=== PATIENT | female | born 1970 | race Caucasian/White ===

== ENCOUNTER 2021-11-07 17:15 | Inpatient (IN) | payer OTHER ==
[2021-11-07] MEDS ORDERED: NALOXONE 0.4 MG/ML 1 ML VIAL IV PRN (19:00)
--- NOTE | 2021-11-07 19:05 | ED ---
General Adult HPI - General Chief complaint: Abdominal Pain Stated complaint: Abd Pain/Hernia Time Seen by Provider: 11/07/21 17:17 Source: patient, EMS, RN notes reviewed, old records reviewed Mode of arrival: EMS Limitations: no limitations - History of Present Illness Initial comments: Patient is a 51-year-old female with past medical history remarkable for chronic ventral hernia, COPD on oxygen at home who presents emergency Department complaining of a multi day history of worsening nonspecific generalized abdominal pain. Patient states that her ventral hernia normally is somewhat pretreated. No change in that site. Is not complaining of any particular pain at that site either. States her abdominal pain is crampy and located all over her abdomen. Denies fevers, chills, cough. Denies change in bowel movements, she had one yesterday and it was normal. Does endorse nausea as well as intermittent episodes of vomiting. Denies any fevers. Denies chest pain or shortness of breath. Denies cough. Has no other acute complaints at this time. No urinary complaints. Patient was sent here from the outside facility as they do not have a surgeon. They did CT imaging her as well as have problem laboratory studies all of which were relatively unremarkable. White blood cell, was minimally elevated to 11. Lactic acid was normal. CT showed no signs of hernia strangulation. - Related Data Home Medications Medication Instructions Recorded Confirmed Albuterol Nebulized [Ventolin 2.5 mg INHALATION RT-TID PRN 11/07/21 11/07/21 Nebulized] Albuterol Sulfate [Ventolin HFA] 2 puff INHALATION RT-Q6H PRN 11/07/21 11/07/21 Aspirin EC [Ecotrin Low Dose] 81 mg PO DAILY@89911/07/21 11/07/21 Atorvastatin Calcium [Lipitor] 40 mg PO DAILY@89911/07/21 11/07/21 Cetirizine HCl 10 mg PO DAILY PRN 11/07/21 11/07/21 Fenofibrate [Lofibra] 160 mg PO DAILY@89911/07/21 11/07/21 Fluticasone Propion/Salmeterol 2 puff INHALATION RT-HS 11/07/21 11/07/21 [Advair Hfa 45-21 Mcg Inhaler] Furosemide [Lasix] 20 mg PO HS@219911/07/21 11/07/21 Furosemide [Lasix] 40 mg PO DAILY@1000 11/07/21 11/07/21 Gabapentin 300 mg PO TID@0900,1300,2200 11/07/21 11/07/21 Isosorbide Mononitrate ER [Imdur] 30 mg PO DAILY@89911/07/21 11/07/21 Levothyroxine Sodium [Synthroid] 88 mcg PO DAILY@69911/07/21 11/07/21 Liraglutide [Victoza 2-Alberto] 0.6 mg SQ DAILY@89911/07/21 11/07/21 Magnesium Oxide [Magox 400] 400 mg PO DAILY@89911/07/21 11/07/21 Omeprazole 20 mg PO DAILY@89911/07/21 11/07/21 Potassium Chloride ER [K-Dur 10] 10 meq PO DAILY@89911/07/21 11/07/21 carvediloL [Coreg] 25 mg PO BID@0900,1700 11/07/21 11/07/21 lisinopriL [Zestril] 5 mg PO DAILY@89911/07/21 11/07/21 metFORMIN HCL [metFORMIN HCL ER 1,000 mg PO BID@0900,1700 11/07/21 11/07/21 Gastric] rOPINIRole HCL [Requip] 0.25 mg PO HS@209911/07/21 11/07/21 traZODone HCL [Desyrel] 50 mg PO HS@2100 11/07/21 11/07/21 Allergies Allergy/AdvReac Type Severity Reaction Status Date / Time No Known Allergies Allergy Verified 11/07/21 19:05 Review of Systems ROS Statement: Those systems with pertinent positive or pertinent negative responses have been documented in the HPI. Review of Systems: CONST: Denies fever EYES: Denies blurry vision ENT: Denies nasal congestion C/V: Denies Chest pain RESP: Denies shortness of breath GI: Endorses abdominal pain : Denies dysuria SKIN: Denies rash. MSK: Denies joint pain. NEURO: Denies headache ROS Other: All systems not noted in ROS Statement are negative. General Exam - General Exam Comments Initial Comments: General: Appears in no acute distress. HEAD: Normal with no signs of head trauma. EYES: PERRLA, EOMI, conjunctiva normal, no discharge. ENT: Hearing grossly intact, normal oropharynx. RESPIRATORY: Clear breath sounds bilaterally. No wheezes, rales, or rhonchi. No respiratory distress. No hypoxia and baseline nasal cannula. C/V: Regular rate and rhythm. S1 and S2 auscultated, no edema, peripheral pulses 2+ and intact throughout ABD: Abdomen is soft, nondistended. Patient does have a ventral hernia in the right lower quadrant. This is chronic. No new skin changes. No new enlargement. No new pain there. Gen. tenderness on palpation without any focal tenderness. No guarding. No rebound tenderness. No peritoneal signs. EXT: Normal range of motion, no obvious deformity SKIN: No rashes or lesions observed on exposed skin. NEURO: Alert and oriented 4. No focal deficits. Limitations: no limitations Course Vital Signs 11/07/21 11/07/21 11/07/21 17:39 20:35 22:18 Temperature 97.4 F L 98.2 F Pulse Rate 64 68 Pulse Rate [ 73 Pulse Oximetery ] Respiratory 18 18 19 Rate Blood Pressure 123/56 113/58 Blood Pressure 120/81 [Left Arm] O2 Sat by Pulse 95 97 99 Oximetry Medical Decision Making - Medical Decision Making Based on the patient's presentation and physical exam, does appear she is experiencing intractable abdominal pain of unknown cause. Receive multiple doses of pain medications at the outside facility. Was accepted here as a singh sfer. No change in exam at this time. Will be redosed pain meds we will repeat laboratory studies as well as an EKG. Attempts to locate the disc for the CT imaging that it does appear that she only came with the paper copy of the interpretation. Interpretation states "there is a ventral hernia which contains a short segment of small bowel. No evidence for strangulation at this time. No obstructive change seen." Patient was in agreement this plan. She'll trial eating, and will be redosed pain medications at this time. I spoke with [facility] end[facility] dentist, Dr. Diaz who accepted the patient. EKG showed no signs of acute ischemia. Laboratory studies have a screening showed a slightly elevated lactic acid 2.1 is likely secondary to dehydration. We'll given him a half liter fluid bolus. Potassium is also slightly elevated to 5.7 for which the fluid to treat. No signs of EKG changes. Patient was admitted in stable condition. - Lab Data Result diagrams: 11/07/21 19:50 11/07/21 19:50 - EKG Data -: EKG Interpreted by Me EKG Comments: 12-lead Electrocardiogram Interpretation Note EKG was reviewed and interpreted by myself. 12-lead ECG performed at 1932 is interpreted by me as revealing normal sinus rhythm with first-degree AV block at a rate of 61 beats per minute. [place] is normal. [place] interval is 234 ms, QRS duration 92 ms, QTc is 406 ms.. There were no ST or T wave abnormalities to suggest myocardial ischemia or injury. Patient has 2 PVCs appreciated. R wave progression across the precordium was satisfactory. By my interpretation this EKG is non-diagnostic for acute ischemia. Disposition Clinical Impression: Intractable abdominal pain Disposition: ADMITTED IP TO THIS HOSP Condition: Stable Time of Disposition: 19:00
[2021-11-07 20:08] LABS: Albumin 4.5 g/dL (3.5-5.0); Calcium 9.6 mg/dL (8.4-10.2); Potassium 5.7 mmol/L (3.5-5.1); Total Bilirubin 0.4 mg/dL (0.2-1.3); Total Protein 7.8 g/dL (6.3-8.2)
[2021-11-07 20:21] LABS: Basophils % (A) 0 %; Eosinophils # (A) 0.2 k/uL (0-0.7); Eosinophils % (A) 2 %; HCT 41.8 % (34.0-46.0); HGB 13.1 gm/dL (11.4-16.0); Lymphocytes # (A) 1.2 k/uL (1.0-4.8); Lymphocytes % (A) 13 %; MCH 28.7 pg (25.0-35.0); MCHC 31.4 g/dL (31.0-37.0); MCV 91.3 fL (80.0-100.0); Mean Platelet Volume 9.3; Monocytes # (A) 0.5 k/uL (0-1.0); Monocytes % (A) 5 %; Neutrophils # (A) 7.1 k/uL (1.3-7.7); Neutrophils % (A) 78 %; Platelet Count 264 k/uL (150-450); RBC 4.58 m/uL (3.80-5.40); RDW 14.4 % (11.5-15.5); WBC 9.1 k/uL (3.8-10.6)
[2021-11-07] MEDS ORDERED: SODIUM CHLORIDE 0.9% 500 ML 500 ML IV STA (20:25)
[2021-11-07] MEDS: HYDROmorphone 0.5 MG/0.5 ML SYRINGE IVP PRN (20:32)
[2021-11-08] MEDS: HYDROmorphone 0.5 MG/0.5 ML SYRINGE IVP PRN ×3 (02:06→13:59)
[2021-11-08] MEDS ORDERED: IPRATROPIUM-ALBUTEROL 3 ML NEB INHALATION PRN (02:52)
--- NOTE | 2021-11-08 02:54 | P.HPIM ---
History of Present Illness H&P Date: 11/07/21 The patient is a 51-year-old female with a PMH of COPD, chronic hypoxic respiratory failure home oxygen therapy, type II DM, hypertension, hyperlipidemia, CHF, hypothyroidism who was transferred from an outside facility where she had presented with complaints of abdominal pain. The patient reports that her pain started suddenly this morning after she had breakfast at around the site of her ventral hernia. Reports the pain has been intermittent, maximal intensity 8 out of 10, aching in nature, with a no alleviating or exacerbating features. She also reports associated nausea with a single episode of nonbloody emesis. She reports that her hernia has been essentially unchanged for the past 10-20 years. She notes that it is chronically unreducible due to its sheer size, but has not caused her much trouble in the past. She underwent a computed tomography scan at the presenting facility showing short segment of small bowel in the ventral hernia with no evidence of strangulation or obstruction. At time of interview, the patient reports that her pain has improved to a 3 out of 10. EKG in the emergency room revealed sinus rhythm with first-degree AV block with PVCs at 61 bpm. Laboratory evaluation was remarkable for a lactic acid of 2.1, sodium 135, potassium 5.7, and BUN 21. Review of systems: Pertinent positives and negatives as discussed in HPI, a complete review of systems was performed and all other systems are negative. Physical examination: General: non toxic, no distress, appears older than stated age, morbidly obese Derm: no unusual rashes/lesions, warm Head: atraumatic, normocephalic, symmetric Eyes: EOMI, no lid lag, anicteric sclera, pupils equal round reactive to light ENT: Nose and ears atraumatic Neck: No cervical lymphadenopathy, trachea midline, supple Mouth: no lip lesion, mucus membranes moist Cardiovascular: S1S2 reg, no murmur, positive dorsalis pedis pulse bilateral, no edema Lungs: CTA bilateral, no rhonchi, no rales, no accessory muscle use Abdominal: Obese, large right lower quadrant ventral hernia with tenderness, no guarding Ext: muscle strength 5 out of 5 in all 4 extremities grossly, no gross muscle atrophy, no contractures, Neuro: CN II-XI grossly intact, no gross focal neuro deficits Psych: Alert, oriented, appropriate affect Assessment/plan Intractable abdominal pain with nausea and vomiting -Gentle IV hydration -Pain control -Antiemetics Hyperkalemia -May be due to dehydration with VANESA inhibitor and potassium supplementation use -Hold off on home lisinopril and potassium at this time -IV fluids Chronic conditions: Hyperlipidemia, hypertension, type II DM, hypothyroidism, CHF -Continue with home meds -Insulin sliding scale blood glucose monitoring DVT prophylaxis -Heparin subcu The patient is admitted with an anticipated less than 2 midnight stay for evaluation of abdominal pain. CODE STATUS: Full Code Discussed with: Patient Anticipated discharge date: In a.m. Anticipated discharge place: Home Past Medical History History of Any Multi-Drug Resistant Organisms: None Reported Smoking Status: Smoker, current status unknown - Past Family History Mother Family Medical History: Cancer Medications and Allergies Home Medications Medication Instructions Recorded Confirmed Type Albuterol Nebulized [Ventolin 2.5 mg INHALATION RT-TID PRN 11/07/21 11/07/21 History Nebulized] Albuterol Sulfate [Ventolin HFA] 2 puff INHALATION RT-Q6H PRN 11/07/21 11/07/21 History Aspirin EC [Ecotrin Low Dose] 81 mg PO DAILY@0911/07/21 11/07/21 History Atorvastatin Calcium [Lipitor] 40 mg PO DAILY@89911/07/21 11/07/21 History Cetirizine HCl 10 mg PO DAILY PRN 11/07/21 11/07/21 History Fenofibrate [Lofibra] 160 mg PO DAILY@0911/07/21 11/07/21 History Fluticasone Propion/Salmeterol 2 puff INHALATION RT-HS 11/07/21 11/07/21 History [Advair Hfa 45-21 Mcg Inhaler] Furosemide [Lasix] 20 mg PO HS@2200 11/07/21 11/07/21 History Furosemide [Lasix] 40 mg PO DAILY@1000 11/07/21 11/07/21 History Gabapentin 300 mg PO TID@0900,1300,2200 11/07/21 11/07/21 History Isosorbide Mononitrate ER [Imdur] 30 mg PO DAILY@0900 11/07/21 11/07/21 History Levothyroxine Sodium [Synthroid] 88 mcg PO DAILY@69911/07/21 11/07/21 History Liraglutide [Victoza 2-Alberto] 0.6 mg SQ DAILY@89911/07/21 11/07/21 History Magnesium Oxide [Magox 400] 400 mg PO DAILY@89911/07/21 11/07/21 History Omeprazole 20 mg PO DAILY@89911/07/21 11/07/21 History Potassium Chloride ER [K-Dur 10] 10 meq PO DAILY@89911/07/21 11/07/21 History carvediloL [Coreg] 25 mg PO BID@0900,1700 11/07/21 11/07/21 History lisinopriL [Zestril] 5 mg PO DAILY@89911/07/21 11/07/21 History metFORMIN HCL [metFORMIN HCL ER 1,000 mg PO BID@0900,169911/07/21 11/07/21 History Gastric] rOPINIRole HCL [Requip] 0.25 mg PO HS@209911/07/21 11/07/21 History traZODone HCL [Desyrel] 50 mg PO HS@209911/07/21 11/07/21 History Allergies Allergy/AdvReac Type Severity Reaction Status Date / Time No Known Allergies Allergy Verified 11/07/21 19:05 Physical Exam Vitals: Vital Signs Temp Pulse Pulse Resp BP BP Pulse Ox 11/07/21 22:18 98.2 F 73 19 120/81 99 11/07/21 20:35 68 18 113/58 97 11/07/21 17:39 97.4 F L 64 18 123/56 95 Intake and Output 11/07/21 11/07/21 11/07/21 06:59 14:59 22:59 Other: Voiding Method Toilet Weight 141.067 kg Results CBC & Chem 7: 11/07/21 19:50 11/07/21 19:50 Labs: Abnormal Lab Results - Last 24 Hours (Table) 11/07/21 11/07/21 Range/Units 19:50 19:50 Sodium 135 L (137-145) mmol/L Potassium 5.7 H (3.5-5.1) mmol/L BUN 21 H (7-17) mg/dL Glucose 162 H (74-99) mg/dL Plasma Lactic Acid Theodore 2.1 H* (0.7-2.0) mmol/L Thrombosis Risk Factor Assmnt - Choose All That Apply Each Factor Represents 1 point: Abnormal pulmonary function (COPD), Age 41-60 years, Obesity (BMI >25) Thrombosis Risk Factor Assessment Total Risk Factor Score: 3 Thrombosis Risk Factor Assessment Level: Moderate Risk
[2021-11-08] MEDS: LEVOTHYROXINE 88 MCG TAB PO SCH (05:24)
[2021-11-08 06:59] LABS: Glucose,Whole Blood 132 mg/dL (70-110)
[2021-11-08] MEDS: ASPIRIN 81 MG PO SCH (07:55)
[2021-11-08] MEDS: carvediloL 12.5 MG TAB PO SCH ×2 (07:55→19:46)
[2021-11-08] MEDS: HEPARIN SODIUM,PORCINE/PF 5,000 UNIT/0.5 ML SYRINGE SQ SCH ×3 (07:55→21:25)
[2021-11-08] MEDS: INSULIN ASPART (NovoLOG) 100 UNIT/ML VIAL SQ SCH ×4 (07:55→21:27)
[2021-11-08] MEDS: MAGNESIUM OXIDE 400 MG TAB PO SCH (07:55)
[2021-11-08] MEDS: GABAPENTIN 300 MG CAP PO SCH ×3 (07:55→21:26)
[2021-11-08] MEDS: ISOSORBIDE MONONITRATE ER 30 MG TAB.ER.24H PO SCH (07:55)
[2021-11-08] MEDS: ATORVASTATIN 40 MG TAB PO SCH (07:55)
[2021-11-08 08:51] LABS: Basophils # (A) 0.02 X 10*3/uL (0.00-0.10); Basophils % (A) 0.2 %; Eosinophils % (A) 0.8 %; HCT 43.7 % (37.2-46.3); HGB 12.9 g/dL (12.0-15.0); Immature Grans, Automated 0.3 %; Lymphocytes # (A) 1.68 X 10*3/uL (0.90-5.00); Lymphocytes % (A) 13.7 %; MCH 27.5 pg (27.0-32.0); MCHC 29.5 g/dL (32.0-37.0); MCV 93.2 fL (80.0-97.0); Monocytes # (A) 1.11 X 10*3/uL (0.20-1.00); NRBC Per 100 WBC 0 /100 WBCS (0.0-0.0); Neutrophils # (A) 9.35 X 10*3/uL (1.80-7.70); Platelet Count 273 X 10*3/uL (140-440); RBC 4.69 X 10*6/uL (4.10-5.20); RDW 14.8 % (11.5-14.5)
[2021-11-08] MEDS ORDERED: lisinopriL 5 MG TAB PO SCH (09:00)
[2021-11-08] MEDS ORDERED: POTASSIUM CHLORIDE ER 10 MEQ TAB.ER.PRT PO SCH (09:00)
[2021-11-08 09:59] LABS: Appearance,Urine Clear (Clear); Bacteria,Urine Rare /hpf; Bilirubin,Urine Negative (Negative); Blood,Urine Negative (Negative); Color,Urine Yellow; Glucose,Urine (UA) Negative (Negative); Ketones,Urine Negative (Negative); Leukocyte Esterase,Urine Moderate (Negative); Mucus,Urine Rare /hpf; Nitrite,Urine Negative (Negative); PH, Urine 5.5 (5.0-8.0); Protein,Urine Negative (Negative); RBC,Urine 1 /hpf (0-5); Specific Gravity,Urine 1.015 (1.001-1.035); Squamous Epithelial Cell,Urine 2 /hpf (0-4); Urobilinogen,Urine <2.0 mg/dL (<2.0); WBC,Urine 9 /hpf (0-5)
[2021-11-08 11:19] LABS: Albumin/Globulin Ratio 1.33 (1.60-3.17); Anion Gap 11.4 mmol/L (10.00-18.00); Calcium 9.5 mg/dL (8.7-10.3); Carbon Dioxide 26.6 mmol/L (20.0-27.5); Non-African American GFR(CKD) 64.7 (60.0-200.0); Potassium 5.2 mmol/L (3.5-5.5); Total Bilirubin 0.3 mg/dL (0.30-1.20)
[2021-11-08 12:13] LABS: Glucose,Whole Blood 196 mg/dL (70-110)
[2021-11-08] MEDS: IOPAMIDOL CONTRAST (ORAL USE) VIAL PO PRN ×2 (14:26→15:32)
--- NOTE | 2021-11-08 14:40 | P.GSCN ---
History of Present Illness Consult date: 11/08/21 History of present illness: REASON FOR CONSULTATION: Abdominal pain HISTORY OF PRESENT ILLNESS: The patient is a 51 year old female transferred from an outside institution due to abdominal pain that started yesterday. Patient presents with a complicated surgical history of incisional hernia ongoing for over 20+ years. Patient reports hernia developing after cholecystectomy. She reports that surgeons at her home town will not do her surgery. She was referred to [facility] and chose not to go. Patient chronically smokes. She reports her first episode of right lower quadrant abdominal pain yesterday. CT imaging not immediately available from prior institution. Per medical records, she has bowel containing hernia identified. Patient had 1 epi sode of emesis yesterday. She denies flatus. No bowel movement. EKG performed at this institution demonstrates multiple abnormalities. She reports no flatus. PAST MEDICAL HISTORY: See list and reviewed PAST SURGICAL HISTORY: See list and reviewed MEDICATIONS: See list and reviewed ALLERGIES: See list and reviewed SOCIAL HISTORY: See list and reviewed FAMILY HISTORY: See list and reviewed REVIEW OF ORGAN SYSTEMS: CONSTITUTIONAL: No fevers or chills. BMI 48.7 EYES: Denies any trouble with vision. No glasses. HEENT: No difficulties with hearing. No nosebleeds. No difficulty swallowing. RESPIRATORY: Tobacco user. Has chronic obstructive pulmonary disease. CARDIOVASCULAR: Has hyperlipidemia. Has hypertensive heart disease. Has congestive heart failure. GASTROINTESTINAL: Denies fatty food intolerance. Has gastroesophaegal reflux disease. GENITOURINARY: Denies any blood in urine or increased urinary frequency. NEUROLOGICAL: Denies any numbness or tingling along the distal extremities. No seizure disorders or headaches. MUSCULOSKELETAL: Denies any back pain, stiffness or joint arthritis. SKIN: No current skin cancer. No rash. PSYCHIATRIC: Denies current depression or suicidal thoughts. ENDOCRINE: Has hypothyroidism. Has diabetes type II, non-insulin dependent. HEME/LYMPHATIC: Denies any lumps and bumps around the neck. No recent deep venous thrombosis. ALLERGY/IMMUNOLOGY: No immunoglobulin therapy. No immune deficiencies. BREAST: Denies current breast lumps, pain or nipple discharge. PHYSICAL EXAM: VITALS: Reviewed CONSTITUTIONAL: Well developed and in no acute distress. EYES: Conjuctivae without sclera icterus. Extraocular movements grossly intact. HEAD, EARS, NOSE, THROAT: Moist buccal mucosa. Head is atraumatic, normocephalic. Hears conversational speech. No nasal drainage. NECK: Supple. No JV distention. No thyroidomegaly. RESPIRATORY: Non-labored respirations and equal bilateral excursions. No gross wheezes. CARDIOVASCULAR: Palpable 2+ radial pulses. ABDOMEN: Abdomen large pannus without skin changes. Abdomen tender without diffuse peritonitis. Swelling at the right lower quadrant. Umbilical hernia identified. LYMPH: No neck lymphadenopathy. MUSCULOSKELETAL: Nail and fingers with good capillary refill. SKIN: Warm and well perfused with good skin turgor. NEUROLOGIC: Cranial nerves II through XII grossly intact. No focal or lateralizing signs. PSYCH: Appropriate affect. Alert and oriented to person, place and time. Displays appropriate insight. CLINCAL LABS: Reviewed. WBC up from 9.1 to 12.3. Hgb 12.9 EKG: Septal myocardial infarction and 1st degree AV block. ASSESSMENT: 1. Abdominal pain 2. Morbid obesity, BMI 48.7 3. COPD 4. Incarcerated incisional hernia. 5. Congestive heart failure with hypertensive heart disease. 6. Diabetes type II 7. Hypothyroidism. PLAN: 1. Recommend computed tomography scan for investigation strangle incisional hernia. 2. Cardiology risk assessment for abnormal EKG. 3. Tobacco cessation reviewed with patient 4. Recommend chest x-ray and she will need general anesthetic 5. Patient with moderately elevated risk due to chronic tobacco abuse, morbid obesity, multiple cardiac abnormalities per EKG 6. Nothing by mouth and discontinue heart healthy diet 7. CT of the abdomen pelvis for abdominal pain and change in medical condition for strangulated hernia. Thank you for this kind consultation. Past Medical History History of Any Multi-Drug Resistant Organisms: None Reported Smoking Status: Smoker, current status unknown - Past Family History Mother Family Medical History: Cancer Medications and Allergies Home Medications Medication Instructions Recorded Confirmed Type Albuterol Nebulized [Ventolin 2.5 mg INHALATION RT-TID PRN 11/07/21 11/07/21 History Nebulized] Albuterol Sulfate [Ventolin HFA] 2 puff INHALATION RT-Q6H PRN 11/07/21 11/07/21 History Aspirin EC [Ecotrin Low Dose] 81 mg PO DAILY@89911/07/21 11/07/21 History Atorvastatin Calcium [Lipitor] 40 mg PO DAILY@89911/07/21 11/07/21 History Cetirizine HCl 10 mg PO DAILY PRN 11/07/21 11/07/21 History Fenofibrate [Lofibra] 160 mg PO DAILY@0911/07/21 11/07/21 History Fluticasone Propion/Salmeterol 2 puff INHALATION RT-HS 11/07/21 11/07/21 History [Advair Hfa 45-21 Mcg Inhaler] Furosemide [Lasix] 20 mg PO HS@219911/07/21 11/07/21 History Furosemide [Lasix] 40 mg PO DAILY@1000 11/07/21 11/07/21 History Gabapentin 300 mg PO TID@0900,1300,2200 11/07/21 11/07/21 History Isosorbide Mononitrate ER [Imdur] 30 mg PO DAILY@0911/07/21 11/07/21 History Levothyroxine Sodium [Synthroid] 88 mcg PO DAILY@0711/07/21 11/07/21 History Liraglutide [Victoza 2-Alberto] 0.6 mg SQ DAILY@89911/07/21 11/07/21 History Magnesium Oxide [Magox 400] 400 mg PO DAILY@0911/07/21 11/07/21 History Omeprazole 20 mg PO DAILY@0911/07/21 11/07/21 History Potassium Chloride ER [K-Dur 10] 10 meq PO DAILY@0911/07/21 11/07/21 History carvediloL [Coreg] 25 mg PO BID@0900,1700 11/07/21 11/07/21 History lisinopriL [Zestril] 5 mg PO DAILY@0911/07/21 11/07/21 History metFORMIN HCL [metFORMIN HCL ER 1,000 mg PO BID@0900,1700 11/07/21 11/07/21 History Gastric] rOPINIRole HCL [Requip] 0.25 mg PO HS@2100 11/07/21 11/07/21 History traZODone HCL [Desyrel] 50 mg PO HS@2100 11/07/21 11/07/21 History Allergies Allergy/AdvReac Type Severity Reaction Status Date / Time No Known Allergies Allergy Verified 11/07/21 19:05 Surgical - Exam Vital Signs Temp Pulse Resp BP Pulse Ox 97.4 F L 64 18 123/56 95 11/07/21 17:39 11/07/21 17:39 11/07/21 17:39 11/07/21 17:39 11/07/21 17:39 Results - Labs 11/08/21 04:21 11/08/21 04:21 Abnormal Lab Results - Last 24 Hours (Table) 11/07/21 11/07/21 11/08/21 Range/Units 19:50 19:50 04:21 WBC 12.30 H (4.50-10.00) X 10*3/uL MCHC 29.5 L (32.0-37.0) g/dL RDW 14.8 H (11.5-14.5) % Neutrophils # 9.35 H (1.80-7.70) X 10*3/uL Monocytes # 1.11 H (0.20-1.00) X 10*3/uL Sodium 135 L (137-145) mmol/L Potassium 5.7 H (3.5-5.1) mmol/L BUN 21 H (7-17) mg/dL Glucose 162 H (74-99) mg/dL POC Glucose (mg/dL) (70-110) mg/dL Plasma Lactic Acid Theodore 2.1 H* (0.7-2.0) mmol/L Albumin/Globulin Ratio (1.60-3.17) g/dL Ur Leukocyte Esterase (Negative) Urine WBC (0-5) /hpf Urine Bacteria (None) /hpf Urine Mucus (None) /hpf 11/08/21 11/08/21 11/08/21 Range/Units 04:21 06:57 09:30 WBC (4.50-10.00) X 10*3/uL MCHC (32.0-37.0) g/dL RDW (11.5-14.5) % Neutrophils # (1.80-7.70) X 10*3/uL Monocytes # (0.20-1.00) X 10*3/uL Sodium (137-145) mmol/L Potassium (3.5-5.1) mmol/L BUN (7-17) mg/dL Glucose 143 H (74-99) mg/dL POC Glucose (mg/dL) 132 H (70-110) mg/dL Plasma Lactic Acid Theodore (0.7-2.0) mmol/L Albumin/Globulin Ratio 1.33 L (1.60-3.17) g/dL Ur Leukocyte Esterase Moderate H (Negative) Urine WBC 9 H (0-5) /hpf Urine Bacteria Rare H (None) /hpf Urine Mucus Rare H (None) /hpf 11/08/21 Range/Units 12:10 WBC (4.50-10.00) X 10*3/uL MCHC (32.0-37.0) g/dL RDW (11.5-14.5) % Neutrophils # (1.80-7.70) X 10*3/uL Monocytes # (0.20-1.00) X 10*3/uL Sodium (137-145) mmol/L Potassium (3.5-5.1) mmol/L BUN (7-17) mg/dL Glucose (74-99) mg/dL POC Glucose (mg/dL) 196 H (70-110) mg/dL Plasma Lactic Acid Theodore (0.7-2.0) mmol/L Albumin/Globulin Ratio (1.60-3.17) g/dL Ur Leukocyte Esterase (Negative) Urine WBC (0-5) /hpf Urine Bacteria (None) /hpf Urine Mucus (None) /hpf Diabetes panel 11/07/21 11/08/21 Range/Units 19:50 04:21 Sodium 135 L 136 (137-145) mmol/L Potassium 5.7 H 5.2 (3.5-5.1) mmol/L Chloride 100 98 (98-107) mmol/L Carbon Dioxide 26 26.6 (22-30) mmol/L BUN 21 H 19.0 (7-17) mg/dL Creatinine 0.93 1.0 (0.52-1.04) mg/dL Glucose 162 H 143 H (74-99) mg/dL Calcium 9.6 9.5 (8.4-10.2) mg/dL AST 28 21 (14-36) U/L ALT 24 20 (4-34) U/L Alkaline Phosphatase 74 65 (38-126) U/L Total Protein 7.8 7.0 (6.3-8.2) g/dL Albumin 4.5 4.0 (3.5-5.0) g/dL Calcium panel 11/07/21 11/08/21 Range/Units 19:50 04:21 Calcium 9.6 9.5 (8.4-10.2) mg/dL Albumin 4.5 4.0 (3.5-5.0) g/dL Pituitary panel 11/07/21 11/08/21 Range/Units 19:50 04:21 Sodium 135 L 136 (137-145) mmol/L Potassium 5.7 H 5.2 (3.5-5.1) mmol/L Chloride 100 98 (98-107) mmol/L Carbon Dioxide 26 26.6 (22-30) mmol/L BUN 21 H 19.0 (7-17) mg/dL Creatinine 0.93 1.0 (0.52-1.04) mg/dL Glucose 162 H 143 H (74-99) mg/dL Calcium 9.6 9.5 (8.4-10.2) mg/dL Adrenal panel 11/07/21 11/08/21 Range/Units 19:50 04:21 Sodium 135 L 136 (137-145) mmol/L Potassium 5.7 H 5.2 (3.5-5.1) mmol/L Chloride 100 98 (98-107) mmol/L Carbon Dioxide 26 26.6 (22-30) mmol/L BUN 21 H 19.0 (7-17) mg/dL Creatinine 0.93 1.0 (0.52-1.04) mg/dL Glucose 162 H 143 H (74-99) mg/dL Calcium 9.6 9.5 (8.4-10.2) mg/dL Total Bilirubin 0.4 0.30 (0.2-1.3) mg/dL AST 28 21 (14-36) U/L ALT 24 20 (4-34) U/L Alkaline Phosphatase 74 65 (38-126) U/L Total Protein 7.8 7.0 (6.3-8.2) g/dL Albumin 4.5 4.0 (3.5-5.0) g/dL
[2021-11-08] MEDS: SODIUM CHLORIDE 0.9% 1,000 ML IV SCH ×2 (15:33→21:28)
[2021-11-08 16:32] LABS: Glucose,Whole Blood 168 mg/dL (70-110)
--- NOTE | 2021-11-08 16:37 | XR ---
EXAMINATION TYPE: XR chest 2V DATE OF EXAM: 11/08/2021 COMPARISON: NONE HISTORY: Abdominal pain TECHNIQUE: 2 views FINDINGS: There is no heart failure nor confluent pneumonic infiltrate. Costophrenic angles are clear . Heart size is fairly normal. Bony thorax is intact. IMPRESSION: No active cardiopulmonary disease.
--- NOTE | 2021-11-08 16:55 | CT ---
EXAMINATION TYPE: CT abdomen pelvis wo con DATE OF EXAM: 11/08/2021 COMPARISON: None HISTORY: abd hernia CT DLP: 2660.2 mGycm Automated exposure control for dose reduction was used. Images obtained from the diaphragm to the floor the pelvis with oral contrast. Lung bases are clear of consolidation. There is minimal subsegmental atelectasis left lung base. No p leural effusion. No pericardial effusion. Heart size is fairly normal. Liver spleen stomach pancreas appear intact. There are clips from cholecystectomy. There is no adrenal mass. Liver is enlarged and measures 22.5 cm. Kidneys are of normal size and cont our. No hydronephrosis. Ureters are not dilated. No retroperitoneal adenopathy. There is large right anterior abdominal wall ventral hernia containing some small bowel. Small bowel measures up to 3.2 c m. The bladder distends smoothly. No inguinal hernia. No free fluid in the pelvis. No pelvic mass. Ut erus appears normal. The lumbar vertebrae have normal alignment. Disc spaces are fairly normal. No compression fracture. P osterior elements are intact. The hip joints are intact. Bony pelvis is intact. IMPRESSION: The oral contrast material only reaches the proximal small bowel. There is some mildly dilated small bowel in the mid abdomen including the incarcerated large ventral hernia that could be a partial mech anical small bowel obstruction.
--- NOTE | 2021-11-08 16:56 | P.PN ---
Subjective Progress Note Date: 11/08/21 The patient is a 51-year-old female with obesity, COPD, chronic hypoxic respiratory failure on home oxygen, diabetes type 2 transferred for abdominal pain. The patient described right sided pain around the location of her ventral hernia. Patient had a computed tomography scan of present facility with short segment of small bowel and ventral hernia with no evidence of strangulation. She wasn't monitored here overnight she says she still has pain is rated 8 out of 10 Objective - Vital Signs Vital signs: Vital Signs Temp 97.9 F 11/08/21 13:42 Pulse 70 11/08/21 13:42 Resp 14 11/08/21 13:42 BP 124/71 11/08/21 13:42 Pulse Ox 94 L 11/08/21 13:42 FiO2 Intake & Output 11/07/21 11/08/21 11/08/21 18:59 06:59 18:59 Intake Total 118 Balance 118 Weight 141.067 kg 141.067 kg Intake: Oral 118 Other: Voiding Method Toilet Toilet # Voids 0 3 - Constitutional General appearance: Present: morbidly obese - Respiratory Respiratory: bilateral: CTA - Cardiovascular Rhythm: regular - Gastrointestinal Localized gastrointestinal: tender: RLQ - Musculoskeletal Musculoskeletal Comment(s): Chronic stasis changes in the legs bilaterally - Psychiatric Psychiatric: Present: A&O x's 3, appropriate affect - Labs CBC & Chem 7: 11/08/21 04:21 11/08/21 04:21 Labs: Abnormal Lab Results - Last 24 Hours (Table) 11/07/21 11/07/21 11/08/21 Range/Units 19:50 19:50 04:21 WBC 12.30 H (4.50-10.00) X 10*3/uL MCHC 29.5 L (32.0-37.0) g/dL RDW 14.8 H (11.5-14.5) % Neutrophils # 9.35 H (1.80-7.70) X 10*3/uL Monocytes # 1.11 H (0.20-1.00) X 10*3/uL Sodium 135 L (137-145) mmol/L Potassium 5.7 H (3.5-5.1) mmol/L BUN 21 H (7-17) mg/dL Glucose 162 H (74-99) mg/dL POC Glucose (mg/dL) (70-110) mg/dL Plasma Lactic Acid Theodore 2.1 H* (0.7-2.0) mmol/L Albumin/Globulin Ratio (1.60-3.17) g/dL Ur Leukocyte Esterase (Negative) Urine WBC (0-5) /hpf Urine Bacteria (None) /hpf Urine Mucus (None) /hpf 11/08/21 11/08/21 11/08/21 Range/Units 04:21 06:57 09:30 WBC (4.50-10.00) X 10*3/uL MCHC (32.0-37.0) g/dL RDW (11.5-14.5) % Neutrophils # (1.80-7.70) X 10*3/uL Monocytes # (0.20-1.00) X 10*3/uL Sodium (137-145) mmol/L Potassium (3.5-5.1) mmol/L BUN (7-17) mg/dL Glucose 143 H (74-99) mg/dL POC Glucose (mg/dL) 132 H (70-110) mg/dL Plasma Lactic Acid Theodore (0.7-2.0) mmol/L Albumin/Globulin Ratio 1.33 L (1.60-3.17) g/dL Ur Leukocyte Esterase Moderate H (Negative) Urine WBC 9 H (0-5) /hpf Urine Bacteria Rare H (None) /hpf Urine Mucus Rare H (None) /hpf 11/08/21 11/08/21 Range/Units 12:10 16:31 WBC (4.50-10.00) X 10*3/uL MCHC (32.0-37.0) g/dL RDW (11.5-14.5) % Neutrophils # (1.80-7.70) X 10*3/uL Monocytes # (0.20-1.00) X 10*3/uL Sodium (137-145) mmol/L Potassium (3.5-5.1) mmol/L BUN (7-17) mg/dL Glucose (74-99) mg/dL POC Glucose (mg/dL) 196 H 168 H (70-110) mg/dL Plasma Lactic Acid Theodore (0.7-2.0) mmol/L Albumin/Globulin Ratio (1.60-3.17) g/dL Ur Leukocyte Esterase (Negative) Urine WBC (0-5) /hpf Urine Bacteria (None) /hpf Urine Mucus (None) /hpf Assessment and Plan (1) Intractable abdominal pain Narrative/Plan: I appreciate general surgery consult, patient is not nothing by mouth, repeat CT of the abdomen was done is also still pending, pain control will continue on her weight workup to determine next steps for pain control with IV Dilaudid Current Visit: Yes Status: Acute Code(s): R10.9 - UNSPECIFIED ABDOMINAL PAIN SNOMED Code(s): 79596460 (2) Diabetes mellitus Narrative/Plan: Continue insulin sliding scale Current Visit: Yes Status: Acute Code(s): E11.9 - TYPE 2 DIABETES MELLITUS WITHOUT COMPLICATIONS SNOMED Code(s): 68376118 (3) COPD (chronic obstructive pulmonary disease) Narrative/Plan: Patient on home oxygen continue current Current Visit: Yes Status: Acute Code(s): J44.9 - CHRONIC OBSTRUCTIVE PULMONARY DISEASE, UNSPECIFIED SNOMED Code(s): 30367573
[2021-11-08] MEDS: HYDROmorphone 1 MG/ML 1 ML SYRINGE IVP PRN ×2 (17:20→19:45)
[2021-11-08] MEDS: traZODone HCL 50 MG TAB PO SCH (19:46)
[2021-11-08 20:09] LABS: Glucose,Whole Blood 146 mg/dL (70-110)
[2021-11-08] MEDS: SYMBICORT 80-4.5 MCG INHALER INHALATION SCH (20:29)
[2021-11-08] MEDS ORDERED: ONDANSETRON 4 MG/2 ML VIAL IVP STA (21:13)
--- NOTE | 2021-11-08 21:19 | P.PN ---
Progress Note - Text Progress Note Date: 11/08/[address] scan results with Surgeon stone unloader Dr Santizo. She noted that she had reviewed the results of the study and had compared them to the prior computed tomography scan from the outside facility. She noted to continue the patient with nothing by mouth and pain control at this time with no immediate surgical intervention needed.
[2021-11-09] MEDS: HYDROmorphone 1 MG/ML 1 ML SYRINGE IVP PRN ×6 (02:27→20:25)
[2021-11-09] MEDS: LEVOTHYROXINE 88 MCG TAB PO SCH (05:50)
[2021-11-09] MEDS: SODIUM CHLORIDE 0.9% 1,000 ML IV SCH ×2 (05:51→15:36)
[2021-11-09 07:27] LABS: Glucose,Whole Blood 127 mg/dL (70-110)
[2021-11-09] MEDS: INSULIN ASPART (NovoLOG) 100 UNIT/ML VIAL SQ SCH ×4 (07:36→21:24)
[2021-11-09] MEDS: HEPARIN SODIUM,PORCINE/PF 5,000 UNIT/0.5 ML SYRINGE SQ SCH ×2 (07:36→15:49)
[2021-11-09] MEDS: GABAPENTIN 300 MG CAP PO SCH ×3 (07:36→20:27)
[2021-11-09] MEDS: ASPIRIN 81 MG PO SCH (07:36)
[2021-11-09] MEDS: ISOSORBIDE MONONITRATE ER 30 MG TAB.ER.24H PO SCH (07:36)
[2021-11-09] MEDS: MAGNESIUM OXIDE 400 MG TAB PO SCH (07:36)
[2021-11-09] MEDS: ATORVASTATIN 40 MG TAB PO SCH (07:36)
[2021-11-09] MEDS: carvediloL 12.5 MG TAB PO SCH ×2 (07:36→20:29)
[2021-11-09 10:28] LABS: Basophils % (A) 0 %; Eosinophils # (A) 0.1 k/uL (0-0.7); Eosinophils % (A) 1 %; HCT 40.8 % (34.0-46.0); Lymphocytes # (A) 1.5 k/uL (1.0-4.8); Lymphocytes % (A) 16 %; MCH 29.6 pg (25.0-35.0); MCHC 31.9 g/dL (31.0-37.0); MCV 92.9 fL (80.0-100.0); Mean Platelet Volume 9.4; Monocytes # (A) 0.7 k/uL (0-1.0); Monocytes % (A) 8 %; Neutrophils # (A) 6.8 k/uL (1.3-7.7); Neutrophils % (A) 73 %; Platelet Count 233 k/uL (150-450); RBC 4.39 m/uL (3.80-5.40); RDW 14.5 % (11.5-15.5); WBC 9.4 k/uL (3.8-10.6)
[2021-11-09 10:36] LABS: Prothrombin Time 10.8 sec (9.0-12.0)
[2021-11-09 10:37] LABS: ALT 28 U/L (4-34); AST 46 U/L (14-36); African American GFR (CKD) >90 (>60 ml/min/1.73 sqM); Albumin 3.8 g/dL (3.5-5.0); Albumin/Globulin Ratio 1.3; Alkaline Phosphatase 80 U/L (38-126); Anion Gap 9 mmol/L; Blood Urea Nitrogen 15 mg/dL (7-17); Calcium 8.6 mg/dL (8.4-10.2); Carbon Dioxide 26 mmol/L (22-30); Chloride 99 mmol/L (98-107); Globulin 2.9 g/dL; Glucose 127 mg/dL (74-99); Non-African American GFR(CKD) 88 (>60 ml/min/1.73 sqM); Potassium 4.5 mmol/L (3.5-5.1); Sodium 134 mmol/L (137-145); Total Protein 6.7 g/dL (6.3-8.2)
[2021-11-09 11:29] LABS: HCT 40.4 % (37.2-46.3); HGB 12.3 g/dL (12.0-15.0); MCHC 30.4 g/dL (32.0-37.0); Mean Platelet Volume 12.3 fL (9.5-12.2); NRBC Per 100 WBC 0 /100 WBCS (0.0-0.0); Platelet Count 240 X 10*3/uL (140-440); RBC 4.39 X 10*6/uL (4.10-5.20); RDW 14.8 % (11.5-14.5); WBC 10.25 X 10*3/uL (4.50-10.00)
--- NOTE | 2021-11-09 11:32 | CA ---
Transthoracic Echo Report Name: Viki Gamble Age: 51 Gender: F : 1970 Exam Date: 11/08/2021 15:21 Exam Location: [facility] Ht (in): 60 Wt (lb): 311 Ordering Physician: Aquilino Matthew MD Attending/Referring Phys: Academic Records Specialist Luz Marina Moralez RDCS Procedure CPT: Indications: cardio clearance Cardiac Hx: Technical Quality: Very technically difficult study Contrast 1: Lumason Total Dose (mL): 3 Contrast 2: Total Dose (mL): MEASUREMENTS (Male / Female) Normal Values 2D ECHO RV Internal Dim ED PLAX 4.2 cm FINDINGS Left Ventricle Left ventricular ejection fraction is estimated at _50-55%. Right Ventricle Severe right ventricular dilatation. Right Atrium Normal right atrial size. Left Atrium Normal left atrial size. Mitral Valve Mitral valve not well visualized. Aortic Valve Aortic valve not well visualized. Tricuspid Valve Tricuspid valve not well visualized. Pulmonic Valve Pulmonic valve not well visualized. Pericardium Aorta CONCLUSIONS Technically difficult study with suboptimal acoustic windows on account of body habitus Likely normal LV systolic function Enlarged right ventricle Previewed by: Dr. Aquilino Matthew MD (Electronically Signed) Final Date: 09 November 2021 11:31
[2021-11-09 11:53] LABS: Glucose,Whole Blood 145 mg/dL (70-110)
--- NOTE | 2021-11-09 12:06 | P.CRDCN ---
History of Present Illness Consult date: 11/09/21 Reason for Consult (text): Cardiac clearance for surgery Chief complaint: Abdominal pain History of present illness: This is Sean Rosario NP, I'm dictating on behalf of Dr. Matthew's H&P and A&P The patient was interviewed and examined. HPI: Patient is a pleasant 51-year-old female who initially presented to the hospital with complaints of intractable abdominal pain. Patient states that she's had a large ventral hernia for years, but the last night she started having severe pain, that would not resolve. She presented to the hospital for evaluation. She was subsequently admitted for possible ventral hernia repair, but general surgery requested cardiac clearance secondary to the patient's history. Patient does have a history of congestive heart failure, however she states she has never been hospitalized for any significant exacerbations. She reports that it's well-controlled on medications. Patient also has a history of hypertension, that she states is well controlled on medications. She takes a statin for hyperlipidemia. She does state that 4 years ago she had a heart cath which did show a 70% blockage to one of her coronary arteries, however medication management was the preferred option at that time. Today she does not have any complaints of chest pain, shortness of breath, heart palpitations, dizziness, or swelling or edema. ROS: [No fever, chills, or rigors] [no cough, phlegm, or expectoration] [no nausea, vomiting, or diarrhea] [no hematuria, dysuria] [no musculoskelatal complaints] [no strokes or seizures] [no skin lesions] EXAMINATION: GENERAL: Well-appearing, well-nourished and in no acute distress. NECK: Supple without JVD or thyromegaly. LUNGS: Breath sounds clear to auscultation bilaterally. Respiration equal and unlabored. No wheezes, rales or rhonchi. HEART: Regular rate and rhythm without murmurs, rubs or gallops. S1 and S2 heard. EXTREMITIES: Normal range of motion, no edema. No clubbing or cyanosis. Peripheral pulses intact and strong. REVIEW OF LABS, ECG & MEDICAL DATA: LABS: White count 9.4, hemoglobin 13, platelets 233, sodium 134, potassium 4.5, BUN 15, creatinine 0.78, EKG: Normal sinus rhythm IMAGING: Echocardiogram dated 11/08/2021 demonstrates left ventricle ejection fraction estimated at 50-55%, severe right ventricular dilatation, normal right atrial size, normal left atrial size, mitral valve, aortic valve, tricuspid valve, pulmonic valve not well visualized due to body habitus. Conclusion shows a technically difficult study with suboptimal acoustic windows, body habitus, likely normal LV systolic function, enlarged right ventricle; chest x-ray dated 11/08/2021 demonstrates no active cardiopulmonary disease; CT of the abdomen and pelvis dated 11/08/2021 demonstrates that the oral contrast material only reaches the proximal small bowel, there is some mildly dilated small bowel in the mid abdomen including the incarcerated large ventral hernia that could be a partial mechanical small bowel obstruction VITALS: Temp 99.1, pulse 77, respirations 18, blood pressure 144/76, O2 saturation 97% on 2 L by nasal cannula IMPRESSION: 1. Incarcerated ventral hernia 2. History CHF 3. History hypertension 4. Mild hyponatremia PLAN: From a cardiac standpoint the patient is cleared for surgery Secondary to patient's CHF history, the amount of fluids that the patient receives will need to be monitored carefully Patient should have strict intake and output monitoring postoperatively Thank you for the consult and allowing us to participate in the care of this patient. If further recommendations are needed please do not hesitate to reconsult. Past Medical History History of Any Multi-Drug Resistant Organisms: None Reported Smoking Status: Smoker, current status unknown - Past Family History Mother Family Medical History: Cancer Medications and Allergies Home Medications Medication Instructions Recorded Confirmed Type Albuterol Nebulized [Ventolin 2.5 mg INHALATION RT-TID PRN 11/07/21 11/07/21 History Nebulized] Albuterol Sulfate [Ventolin HFA] 2 puff INHALATION RT-Q6H PRN 11/07/21 11/07/21 History Aspirin EC [Ecotrin Low Dose] 81 mg PO DAILY@89911/07/21 11/07/21 History Atorvastatin Calcium [Lipitor] 40 mg PO DAILY@89911/07/21 11/07/21 History Cetirizine HCl 10 mg PO DAILY PRN 11/07/21 11/07/21 History Fenofibrate [Lofibra] 160 mg PO DAILY@89911/07/21 11/07/21 History Fluticasone Propion/Salmeterol 2 puff INHALATION RT-HS 11/07/21 11/07/21 History [Advair Hfa 45-21 Mcg Inhaler] Furosemide [Lasix] 20 mg PO HS@2200 11/07/21 11/07/21 History Furosemide [Lasix] 40 mg PO DAILY@1000 11/07/21 11/07/21 History Gabapentin 300 mg PO TID@0900,1300,2200 11/07/21 11/07/21 History Isosorbide Mononitrate ER [Imdur] 30 mg PO DAILY@0911/07/21 11/07/21 History Levothyroxine Sodium [Synthroid] 88 mcg PO DAILY@0700 11/07/21 11/07/21 History Liraglutide [Victoza 2-Alberto] 0.6 mg SQ DAILY@0911/07/21 11/07/21 History Magnesium Oxide [Magox 400] 400 mg PO DAILY@0900 11/07/21 11/07/21 History Omeprazole 20 mg PO DAILY@0900 11/07/21 11/07/21 History Potassium Chloride ER [K-Dur 10] 10 meq PO DAILY@0911/07/21 11/07/21 History carvediloL [Coreg] 25 mg PO BID@0900,1700 11/07/21 11/07/21 History lisinopriL [Zestril] 5 mg PO DAILY@0911/07/21 11/07/21 History metFORMIN HCL [metFORMIN HCL ER 1,000 mg PO BID@0900,1700 11/07/21 11/07/21 History Gastric] rOPINIRole HCL [Requip] 0.25 mg PO HS@2100 11/07/21 11/07/21 History traZODone HCL [Desyrel] 50 mg PO HS@2100 11/07/21 11/07/21 History Allergies Allergy/AdvReac Type Severity Reaction Status Date / Time No Known Allergies Allergy Verified 11/07/21 19:05 Physical Exam Vitals: Vital Signs Temp Pulse Resp BP Pulse Ox 11/09/21 07:00 99.1 F 77 18 144/76 97 11/09/21 00:39 98.3 F 76 18 114/75 90 L 11/08/21 19:49 18 11/08/21 19:27 98.8 F 74 18 92/58 91 L 11/08/21 13:42 97.9 F 70 14 124/71 94 L Intake and Output 11/08/21 11/09/21 11/09/21 22:59 06:59 14:59 Other: Voiding Method Toilet Toilet # Voids 1 1 Results 11/09/21 09:45 11/09/21 09:45 Cardiac Enzymes 11/09/21 Range/Units 09:45 AST 46 H (14-36) U/L Coagulation 11/09/21 Range/Units 09:45 PT 10.8 (9.0-12.0) sec CBC 11/09/21 11/09/21 Range/Units 06:57 09:45 WBC 10.25 H 9.4 (4.50-10.00) X 10*3/uL RBC 4.39 4.39 (4.10-5.20) X 10*6/uL Hgb 12.3 13.0 (12.0-15.0) g/dL Hct 40.4 40.8 (37.2-46.3) % Plt Count 240 233 (140-440) X 10*3/uL Comprehensive Metabolic Panel 11/09/21 Range/Units 09:45 Sodium 134 L (137-145) mmol/L Potassium 4.5 (3.5-5.1) mmol/L Chloride 99 (98-107) mmol/L Carbon Dioxide 26 (22-30) mmol/L BUN 15 (7-17) mg/dL Creatinine 0.78 (0.52-1.04) mg/dL Glucose 127 H (74-99) mg/dL Calcium 8.6 (8.4-10.2) mg/dL AST 46 H (14-36) U/L ALT 28 (4-34) U/L Alkaline Phosphatase 80 (38-126) U/L Total Protein 6.7 (6.3-8.2) g/dL Albumin 3.8 (3.5-5.0) g/dL Current Medications Generic Name Dose Route Start Last Admin Trade Name Freq PRN Reason Stop Dose Admin Albuterol/Ipratropium 3 ml 11/08/21 02:52 Ipratropium-Albuterol 3 Ml Neb INHALATION RT-QID PRN Shortness Of Breath Or Wheezing Aspirin 81 mg 11/08/21 09:00 11/09/21 07:36 Aspirin 81 Mg PO 81 mg DAILY@0900 [facility] Administration Atorvastatin Calcium 40 mg 11/08/21 09:00 11/09/21 07:36 Atorvastatin 40 Mg Tab PO 40 mg DAILY@0900 [facility] Administration Budesonide/Formoterol Fumarate 2 puff 11/08/21 20:00 11/08/21 20:29 Symbicort 80-4.5 Mcg Inhaler INHALATION Not Given RT-HS [facility] Carvedilol 25 mg 11/08/21 09:00 11/09/21 07:36 Carvedilol 12.5 Mg Tab PO 25 mg BID [facility] Administration Gabapentin 300 mg 11/08/21 09:00 11/09/21 07:36 Gabapentin 300 Mg Cap PO 300 mg TID [facility] Administration Heparin Sodium (Porcine) 5,000 unit 11/08/21 08:00 11/09/21 07:36 Heparin Sodium,Porcine/Pf 5,000 Unit/0.5 Ml Syringe SQ 5,000 unit Q8HR [facility] Administration Hydromorphone HCl 1 mg 11/08/21 14:07 11/09/21 10:11 Hydromorphone 1 Mg/Ml 1 Ml Syringe IVP 1 mg Q3HR PRN Administration Pain Sodium Chloride 1,000 mls @ 130 mls/hr 11/08/21 15:30 11/09/21 05:51 Saline 0.9% IV 130 mls/hr .Q7H42M [facility] Administration Insulin Aspart 0 unit 11/08/21 07:30 11/09/21 07:36 Insulin Aspart (Novolog) 100 Unit/Ml Vial SQ Not Given ACHS [facility] Protocol Isosorbide Mononitrate 30 mg 11/08/21 09:00 11/09/21 07:36 Isosorbide Mononitrate Er 30 Mg Tab.Er.24h PO 30 mg DAILY@0900 [facility] Administration Levothyroxine Sodium 88 mcg 11/08/21 06:30 11/09/21 05:50 Levothyroxine 88 Mcg Tab PO 88 mcg DAILY@0630 [facility] Administration Magnesium Oxide 400 mg 11/08/21 09:00 11/09/21 07:36 Magnesium Oxide 400 Mg Tab PO 400 mg DAILY@0900 [facility] Administration Naloxone HCl 0.2 mg 11/07/21 19:00 Naloxone 0.4 Mg/Ml 1 Ml Vial IV Q2M PRN Opioid Reversal Ropinirole HCl 0.25 mg 11/08/21 21:00 11/08/21 19:46 Ropinirole Hcl 0.25 Mg Tab PO 0.25 mg HS@2100 [facility] Administration Trazodone HCl 50 mg 11/08/21 21:00 11/08/21 19:46 Trazodone Hcl 50 Mg Tab PO 50 mg HS@2100 [facility] Administration Intake and Output 11/08/21 11/09/21 11/09/21 22:59 06:59 14:59 Other: Voiding Method Toilet Toilet # Voids 1 1 11/09/21 09:45 11/09/21 09:45
[2021-11-09 12:54] LABS: African American GFR (CKD) 97.4 (60.0-200.0); Anion Gap 11.8 mmol/L (10.00-18.00); Blood Urea Nitrogen 13.7 mg/dL (9.0-27.0); Calcium 8.8 mg/dL (8.7-10.3); Carbon Dioxide 25.8 mmol/L (20.0-27.5); Potassium 4.6 mmol/L (3.5-5.5)
--- NOTE | 2021-11-09 13:24 | P.PN ---
Subjective Progress Note Date: 11/09/21 Principal diagnosis: Abdominal pain The patient is a 51-year-old female with obesity, COPD, chronic hypoxic respiratory failure on home oxygen, diabetes type 2 transferred for abdominal pain. The patient described right sided pain around the location of her ventral hernia. Patient had a computed tomography scan of present facility with short segment of small bowel and ventral hernia with no evidence of strangulation. The patient states her pain is still about 6-7 out of 10 Objective - Vital Signs Vital signs: Vital Signs Temp 99.1 F 11/09/21 07:00 Pulse 77 11/09/21 07:00 Resp 18 11/09/21 07:00 BP 144/76 11/09/21 07:00 Pulse Ox 97 11/09/21 07:00 FiO2 Intake & Output 11/08/21 11/09/21 11/09/21 18:59 06:59 18:59 Intake Total 118 Balance 118 Intake: Oral 118 Other: Voiding Method Toilet Toilet Toilet # Voids 3 1 - Constitutional General appearance: Present: morbidly obese - Cardiovascular Rhythm: regular - Gastrointestinal General gastrointestinal: Present: normal bowel sounds Localized gastrointestinal: tender: diffuse - Integumentary Integumentary Comment(s): Chronic stasis changes bilaterally - Musculoskeletal Musculoskeletal: Present: gait normal - Psychiatric Psychiatric: Present: appropriate affect - Labs CBC & Chem 7: 11/09/21 09:45 11/09/21 09:45 Labs: Abnormal Lab Results - Last 24 Hours (Table) 11/08/21 11/08/21 11/09/21 Range/Units 16:31 20:08 06:57 WBC 10.25 H (4.50-10.00) X 10*3/uL MCHC 30.4 L (32.0-37.0) g/dL RDW 14.8 H (11.5-14.5) % MPV 12.3 H (9.5-12.2) fL Sodium (137-145) mmol/L Glucose (74-99) mg/dL POC Glucose (mg/dL) 168 H 146 H (70-110) mg/dL AST (14-36) U/L 11/09/21 11/09/21 11/09/21 Range/Units 07:16 09:45 11:47 WBC (4.50-10.00) X 10*3/uL MCHC (32.0-37.0) g/dL RDW (11.5-14.5) % MPV (9.5-12.2) fL Sodium 134 L (137-145) mmol/L Glucose 127 H (74-99) mg/dL POC Glucose (mg/dL) 127 H 145 H (70-110) mg/dL AST 46 H (14-36) U/L Assessment and Plan (1) Intractable abdominal pain Narrative/Plan: I appreciate general surgery consult, patient is not nothing by mouth, appreciate cardiology input. CT of the abdomen showed incarcerated hernia possible SBO Current Visit: Yes Status: Acute Code(s): R10.9 - UNSPECIFIED ABDOMINAL PAIN SNOMED Code(s): 66439449 (2) Diabetes mellitus Narrative/Plan: Continue insulin sliding scale and monitor while NPO Current Visit: Yes Status: Acute Code(s): E11.9 - TYPE 2 DIABETES MELLITUS WITHOUT COMPLICATIONS SNOMED Code(s): 32942902 (3) COPD (chronic obstructive pulmonary disease) Narrative/Plan: Patient on home oxygen continue current management Current Visit: Yes Status: Acute Code(s): J44.9 - CHRONIC OBSTRUCTIVE PULMONARY DISEASE, UNSPECIFIED SNOMED Code(s): 63002454 Plan: Continue pain control, monitor fluids, await surgical intervention
--- NOTE | 2021-11-09 13:47 | P.PN ---
Subjective Progress Note Date: 11/09/21 CHIEF COMPLAINT: Incarcerated ventral hernia HISTORY OF PRESENT ILLNESS: The patient is a 51 year old female with incisional hernia with incarceration. Patient's family at bedside. She reports improvemen t of her abdominal pain. No current nausea. REVIEW OF ORGAN SYSTEMS: No nausea. No chest pain. No fevers or chills. PHYSICAL EXAM: VITALS: Reviewed CONSTITUTIONAL: Well developed and in no acute distress. EYES: Conjuctivae without sclera icterus. Extraocular movements grossly intact. HEAD, EARS, NOSE, THROAT: Moist buccal mucosa. Head is atraumatic, normocephalic. Hears conversational speech. No nasal drainage. RESPIRATORY: Non-labored respirations and equal bilateral excursions. No gross wheezes. CARDIOVASCULAR: Palpable 2+ radial pulses. ABDOMEN: No skin changes. Hernia right lower quadrant. Moderate sized pannus. MUSCULOSKELETAL: Nail and fingers with good capillary refill. SKIN: Warm and well perfused with good skin turgor. NEUROLOGIC: Cranial nerves II through XII grossly intact. No focal or lateralizing signs. PSYCH: Appropriate affect. Alert and oriented to person, place and time. Displays appropriate insight. CLINCAL LABS: Reviewed. WBC up from 9.1 to 12.3. Hgb 12.9 ECHO: Ejection fraction over 50%. STUDIES: CT of the abdomen and pelvis reviewed from outside institution including at the hospital. Incarcerated hernia along right lower quadrant, mod erately fat containing with small bowel. Chest xray reviewed without pneumothorax. ASSESSMENT: 1. Abdominal pain due to incarcerated bowel obstruction 2. Morbid obesity, BMI 48.7 3. COPD 4. Incarcerated incisional hernia. 5. Congestive heart failure with hypertensive heart disease. 6. Diabetes type II 7. Hypothyroidism. PLAN: 1. Surgical care plan reviewed including cardiology assessment for surgical intervention. 2. Robotic incisional hernia described with mesh images for hernia repair reviewed. Possibility of open technique also described. 3. May have ice chips popsicles. 4. Strict tobacco cessation described. 5. Adjustment of dietary intake of increased protein 75-90% daily described for appropriate wound healing. 6. Strict no lifting over 4 pounds for 4 weeks reviewed until December 11. 7. Incidentally, patient also inquired for bariatric procedures which may be addressed following current event. 8. Recommend continued hospitalization for incarcerated hernia with partial bowel obstruction Objective - Vital Signs Vital signs: Vital Signs Temp 99.1 F 11/09/21 07:00 Pulse 77 11/09/21 07:00 Resp 18 11/09/21 07:00 BP 144/76 11/09/21 07:00 Pulse Ox 97 11/09/21 07:00 FiO2 Intake & Output 11/08/21 11/09/21 11/09/21 18:59 06:59 18:59 Intake Total 118 Balance 118 Intake: Oral 118 Other: Voiding Method Toilet Toilet Toilet # Voids 3 1 - Labs CBC & Chem 7: 11/09/21 09:45 11/09/21 09:45 Labs: Abnormal Lab Results - Last 24 Hours (Table) 11/08/21 11/08/21 11/09/21 Range/Units 16:31 20:08 06:57 WBC 10.25 H (4.50-10.00) X 10*3/uL MCHC 30.4 L (32.0-37.0) g/dL RDW 14.8 H (11.5-14.5) % MPV 12.3 H (9.5-12.2) fL Sodium (137-145) mmol/L Glucose (70-110) mg/dL POC Glucose (mg/dL) 168 H 146 H (70-110) mg/dL AST (14-36) U/L 11/09/21 11/09/21 11/09/21 Range/Units 06:57 07:16 09:45 WBC (4.50-10.00) X 10*3/uL MCHC (32.0-37.0) g/dL RDW (11.5-14.5) % MPV (9.5-12.2) fL Sodium 134 L (137-145) mmol/L Glucose 128 H 127 H (70-110) mg/dL POC Glucose (mg/dL) 127 H (70-110) mg/dL AST 46 H (14-36) U/L 11/09/21 Range/Units 11:47 WBC (4.50-10.00) X 10*3/uL MCHC (32.0-37.0) g/dL RDW (11.5-14.5) % MPV (9.5-12.2) fL Sodium (137-145) mmol/L Glucose (70-110) mg/dL POC Glucose (mg/dL) 145 H (70-110) mg/dL AST (14-36) U/L
[2021-11-09 17:12] LABS: Glucose,Whole Blood 168 mg/dL (70-110)
[2021-11-09] MEDS: SYMBICORT 80-4.5 MCG INHALER INHALATION SCH (18:49)
[2021-11-09] MEDS: traZODone HCL 50 MG TAB PO SCH (20:26)
[2021-11-09 20:41] LABS: Glucose,Whole Blood 126 mg/dL (70-110)
[2021-11-10] MEDS: SODIUM CHLORIDE 0.9% 1,000 ML IV SCH ×4 (00:45→23:21)
[2021-11-10] MEDS: HEPARIN SODIUM,PORCINE/PF 5,000 UNIT/0.5 ML SYRINGE SQ SCH ×4 (00:45→23:22)
[2021-11-10] MEDS: LEVOTHYROXINE 88 MCG TAB PO SCH (06:07)
[2021-11-10] MEDS ORDERED: ceFAZolin 3 GM in SODIUM CHLORIDE 0.9% 100 ML IVPB PRN (07:00)
[2021-11-10 07:27] LABS: Glucose,Whole Blood 126 mg/dL (70-110)
[2021-11-10] MEDS: INSULIN ASPART (NovoLOG) 100 UNIT/ML VIAL SQ SCH ×4 (07:32→23:21)
[2021-11-10] MEDS: ASPIRIN 81 MG PO SCH (07:41)
[2021-11-10] MEDS: ATORVASTATIN 40 MG TAB PO SCH (07:41)
[2021-11-10] MEDS: carvediloL 12.5 MG TAB PO SCH ×2 (07:41→22:55)
[2021-11-10] MEDS: GABAPENTIN 300 MG CAP PO SCH ×3 (07:42→23:21)
[2021-11-10] MEDS: MAGNESIUM OXIDE 400 MG TAB PO SCH (07:42)
[2021-11-10] MEDS: HYDROmorphone 1 MG/ML 1 ML SYRINGE IVP PRN ×2 (07:42→14:25)
[2021-11-10] MEDS: ISOSORBIDE MONONITRATE ER 30 MG TAB.ER.24H PO SCH (07:42)
[2021-11-10 12:25] LABS: Glucose,Whole Blood 125 mg/dL (70-110)
--- NOTE | 2021-11-10 12:26 | P.PN ---
Subjective Progress Note Date: 11/10/21 Principal diagnosis: Abdominal pain Patient was seen and examined. No acute events overnight. Patient reports abdominal pain at the site of her hernia. Pain is 5-6 out of 10 in severity. She denies any chest pain, shortness breath or palpitations. No nausea or vomiting. No fever or chills. Objective - Vital Signs Vital signs: Vital Signs Temp 99.1 F 11/10/21 07:00 Pulse 79 11/10/21 07:00 Resp 18 11/10/21 07:00 BP 142/63 11/10/21 07:00 Pulse Ox 94 L 11/10/21 07:00 FiO2 Intake & Output 11/09/21 11/10/21 11/10/21 18:59 06:59 18:59 Intake Total 120 Output Total 300 Balance -180 Intake: Oral 120 Output: Urine 300 Other: Voiding Method Toilet Toilet Toilet # Voids 2 2 - Exam General: [non toxic], [no distress], [appears at stated age] Derm: [warm], [dry] Head: [atraumatic], [normocephalic], [symmetric] Eyes: [EOMI], [no lid lag], [anicteric sclera] Mouth: [no lip lesion], [mucus membranes moist] Cardiovascular: [S1S2 reg], [no murmur] Lungs: [CTA bilateral], [no rhonchi, no rales] , [no accessory muscle use] Abdominal: [soft], [right lower quadrant hernia, large], [no guarding], [no appreciable organomegaly] Ext: [no gross muscle atrophy], [no edema], [no contractures] Neuro: [no focal neuro deficits] Psych: [Alert], [oriented], [appropriate affect] - Labs CBC & Chem 7: 11/09/21 09:45 11/09/21 09:45 Labs: Abnormal Lab Results - Last 24 Hours (Table) 11/09/21 11/09/21 11/09/21 Range/Units 06:57 06:57 17:08 Glucose 128 H (70-110) mg/dL POC Glucose (mg/dL) 168 H (70-110) mg/dL Hemoglobin A1c 6.7 H (0.0-6.0) % 11/09/21 11/10/21 Range/Units 20:39 07:25 Glucose (70-110) mg/dL POC Glucose (mg/dL) 126 H 126 H (70-110) mg/dL Hemoglobin A1c (0.0-6.0) % Assessment and Plan Assessment: Abdominal pain due to Incarcerated ventral hernia Hyponatremia Morbid obesity with BMI 48.7 Chronic conditions: Dyslipidemia, hypertension, type 2 diabetes mellitus, hypothyroidism, COPD Resolved: Nausea and vomiting, hyperkalemia, elevated BUN Plans for surgery today. Cleared by cardiology. Continue nothing by mouth status. Pain control with Dilaudid as needed. Continue normal saline at 130 mL/h. Patient would benefit from a structured weight loss program. Continue aspirin and Lipitor. Continue Coreg, Imdur. Monitor vitals, adjust medications if necessary. Continue insulin sliding scale along with Accu-Cheks 4 times a day and hypoglycemic precautions. Continue Synthroid. Continue Symbicort, DuoNeb as needed for shortness of breath and wheezing. Heparin for DVT prophylaxis.
--- NOTE | 2021-11-10 16:43 | P.HPADDEND ---
H&P Addendum H&P Addendum Date: 11/10/21 Benefits and risks of surgery for robotic ventral hernia with possible open technique. Patient overall reversed due to pre-existing cardiac condition, tobacco abuse disorder, morbid obesity.
[2021-11-10 17:20] LABS: Glucose,Whole Blood 132 mg/dL (70-110)
[2021-11-10] MEDS ORDERED: LACTATED RINGERS 1,000 ML IV ONE ×2 (18:27→20:59)
[2021-11-10] MEDS ORDERED: PROPOFOL 10 MG/ML 20 ML VIAL IV ONE (18:41)
[2021-11-10] MEDS ORDERED: GLYCOPYRROLATE 0.2 MG/ML 2 ML VIAL ONE (18:41)
[2021-11-10] MEDS ORDERED: VECURONIUM 10 MG VIAL IV ONE (18:41)
[2021-11-10] MEDS ORDERED: NEOSTIGMINE 1 MG/ML 10 ML VIAL ONE (18:41)
[2021-11-10] MEDS ORDERED: KETOROLAC 15 MG/ML 1 ML VIAL ONE (18:41)
[2021-11-10] MEDS ORDERED: LIDOCAINE 2% INJ 20 MG/ML (2 ML VIAL) ONE (18:41)
[2021-11-10] MEDS ORDERED: fentaNYL (PF) 50 MCG/ML 2 ML AMP ONE (18:41)
[2021-11-10] MEDS ORDERED: ROCURONIUM 10 MG/ML (5 ML VIAL) IV ONE (18:41)
[2021-11-10] MEDS ORDERED: SUCCINYLCHOLINE CHLORIDE 100 MG/5 ML SYR IV ONE (18:41)
[2021-11-10] MEDS ORDERED: HYDROmorphone (PF) 1 MG/ML ONE (18:41)
[2021-11-10] MEDS ORDERED: MIDAZOLAM 2 MG/2 ML VIAL ONE (18:41)
[2021-11-10] MEDS ORDERED: HEPARIN SODIUM,PORCINE 5,000 UNIT/ML 1 ML VIAL ONE (18:41)
[2021-11-10] MEDS ORDERED: BUPIVACAIN-EPI 0.25%-1:200,000 30 ML VIAL SQ ONE (19:20)
[2021-11-10] MEDS: SYMBICORT 80-4.5 MCG INHALER INHALATION SCH (19:44)
--- NOTE | 2021-11-10 21:22 | P.OP ---
Date of Procedure: 11/10/21 Description of Procedure: SURGEON: JULY COX MD PREOPERATIVE DIAGNOSES: 1. Incarcerated initial incisional hernia, lower abdomen with small bowel obstruction 2. Chronic obstructive pulmonary disease 3. Fibromyalgia 4. Gastroesophageal reflux disease 5. Hypothyroidism POSTOPERATIVE DIAGNOSES: 1. Incarcerated incisional hernia, initial 9 x 5 cm lower abdomen with small bowel obstruction 2. Chronic obstructive pulmonary disease 3. Fibromyalgia 4. Gastroesophageal reflux disease 5. Hypothyroidism 6. Incarcerated incisional hernia epigastrium, 6 x 4 cm 7. Severe intra-abdominal adhesions lower abdomen OPERATION: 1. Robotic-assisted da Pelon Xi laparoscopic extensive lysis of adhesions over 1 hours 2. Robotic-assisted da Pelon Xi laparoscopic reduction and repair of incarcerated initial incisional hernia with small bowel obstruction 9 x 5 cm with mesh, ventralight ST mesh 10 x 15 cm 3. Robotic-assisted da Pelon Xi laparoscopic reduction and repair of incarcerated initial incisional hernia epigastrium 6 x 4 cm without minimal 4. Partial omentectomy Anesthesia: GETA, local Estimated Blood Loss (ml): 10 Pathology: none sent Condition: stable COMPLICATIONS: None. Operative Findings: 1. Severe intra-abdominal adhesions lower midline 2. Epigastric hernia defect with incarcerated fat, 6 x 4 cm reduced and closed 3. Incarcerated small bowel with bowel obstruction reduced without infarction, defect 9 x 5 cm combined 4. Reduction and piecemeal resection of 3 pounds incarcerated omentum lower midline incisional hernia 5. Large subcutaneous space 20 x 15 cm aspirated of air using an 18-gauge spinal needle 6. Trendelenburg at 7 to allow for reduction of incarcerated hernia 7. Accessary trocar at the left upper quadrant use for placement of mesh and suture. 8. Use of a 15 mm Endo Catch bag for removal of contents INDICATIONS: The patient is a 51-year-old female who presents with acute small bowel obstruction due to an incarcerated incisional hernia of the lower abdomen. Surgical intervention with laparoscopic versus robotic and open techniques were reviewed. Placement of mesh was also reviewed. Benefits and risks were thoroughly described. Informed consent was obtained. DESCRIPTION OF PROCEDURE: The patient was brought into the operating room and laid in supine position. After general induction, the abdomen had been prepped and draped in standard sterile fashion. Ioban draping was also placed. Prior to incision, a timeout protocol was confirmed with surgical team regarding the patient's name including procedures to be performed. The robot was primed prior to the procedure. A field block using local anesthetic was placed along hernia site including the proposed port sites. Initial incision was made with a #11 blade along the left upper quadrant. A 0 degree 5 mm laparoscopic trocar entry was performed. Diagnostic laparoscopy demonstrated moderate peritoneal adhesions involving the entire abdomen consistent with her previous mesh repair and prior multiple abdominal surgeries. Separately an incarcerated incisional hernia of the lower abdomen was identified at the inferior portion of her prior mesh repair. Two robotic 8-mm ports were initially placed along the left lateral abdominal wall as the 5-mm port of the left upper quadrant was exchanged. Placements of the ports were 15 cm from the target anatomy and approximately 10 cm apart. The Terareconi Xi robot was previously primed, prepped and draped then docked along the left side of the patient. I then sat at the robot [employer] Pelon Xi console where working arms of the robot including Bovie cautery connected to robotic scissors, needle water tanker driver, vessel sealer and graspers were exchanged by the corporate legal assistant. She had very dense adhesions of the epigastrium and left upper quadrant involving the greater omentum and transverse colon to the mesh of the abdominal wall that were addressed with a combination of sharp and blunt dissection for over 30 minutes using only 1 arm and the camera. Next the robot was re-docked along the upper abdomen with 8-mm trocars placed at the epigastrium and left upper quadrant. The bed was repositioned in steep Trendelenburg to address the rest of the adhesions of the lower abdomen. Next, additional extensive lysis of adhesions occurred over 1 hour to reduce the small bowel from the abdominal wall and intraloop adhesions without enterotomies. Complete lysis of adhesions occurred for 1.5 hrs. The fascial defect of 4 x 5 cm of the lower abdomen was identified .The incarcerated contents was reduced. The hernia defect was oversewn using #1 VLOC with fascial imbrication x 3 to close and reinforce the defect. Insufflation was adjusted down to 8 mmHg pressure to accommodate repair. Next, ventralight ST mesh 10 x 15 cm cm was placed with the rough side towards the abdominal wall. 2-0 VLOC 9 inch sutures were used to fixate the mesh. A final endoscopic imaging was obtained. All instruments and pneumoperitoneum were evacuated from the abdominal cavity. The da Pelon Xi robot was undocked from the patient. I re-scrubbed into the case for closure of incisions. The incisions were reapproximated using 4-0 Monocryl in an interrupted subcuticular fashion. Liquid glue was applied to the skin after cleansing the skin with normal saline and dilute hydrogen peroxide. An abdominal binder was placed. At the end of the procedure, needle, sponge, and instrument count had been verified correct by neurosurgical physician assistant. The patient was taken to the postanesthesia care unit in stable condition. Patient's sister notified via telephone with intraoperative findings described.
[2021-11-10] MEDS ORDERED: NALOXONE 0.4 MG/ML 1 ML VIAL IV PRN (21:25)
[2021-11-10] MEDS ORDERED: SUGAMMADEX SODIUM 200 MG/2 ML SDV IV ONE (21:32)
[2021-11-10] MEDS ORDERED: ALBUTEROL NEBULIZED 2.5 MG/3 ML INHALATION ONE (21:38)
[2021-11-10 21:41] LABS: Glucose,Whole Blood 193 mg/dL (70-110)
[2021-11-10] MEDS ORDERED: ALBUTEROL HFA INHALER INHALATION PRN (21:56)
[2021-11-10] MEDS ORDERED: NON FORMULARY DRUG (Cetirizine Hcl [Cetirizine Hcl] 10 MG Tablet) PO PRN (21:56)
[2021-11-10] MEDS ORDERED: ALBUTEROL NEBULIZED 2.5 MG/3 ML INHALATION PRN (21:56)
[2021-11-10] MEDS ORDERED: HYDROmorphone PCA 10 MG/50 ML BAG IV PRN (22:00)
[2021-11-10] MEDS ORDERED: FUROSEMIDE 20 MG TAB PO SCH (22:00)
[2021-11-10 23:17] LABS: Glucose,Whole Blood 185 mg/dL (70-110)
[2021-11-10] MEDS: traZODone HCL 50 MG TAB PO SCH (23:21)
[2021-11-11] MEDS: ACETAMINOPHEN IV (For NPO) 1,000 MG in EMPTY BAG 1 BAG IVPB SCH ×4 (01:14→17:21)
[2021-11-11] MEDS: SODIUM CHLORIDE 0.9% 1,000 ML IV SCH ×3 (04:11→19:51)
[2021-11-11] MEDS: LEVOTHYROXINE 88 MCG TAB PO SCH (04:59)
[2021-11-11 07:20] LABS: Glucose,Whole Blood 116 mg/dL (70-110)
[2021-11-11] MEDS: HEPARIN SODIUM,PORCINE/PF 5,000 UNIT/0.5 ML SYRINGE SQ SCH ×3 (07:36→23:26)
[2021-11-11] MEDS: GABAPENTIN 300 MG CAP PO SCH ×3 (07:37→19:59)
[2021-11-11] MEDS: carvediloL 12.5 MG TAB PO SCH ×2 (07:37→19:59)
[2021-11-11] MEDS: ISOSORBIDE MONONITRATE ER 30 MG TAB.ER.24H PO SCH (07:37)
[2021-11-11] MEDS: HYDROmorphone 1 MG/ML 1 ML SYRINGE IVP PRN ×4 (07:37→22:31)
[2021-11-11] MEDS: ASPIRIN 81 MG PO SCH (07:37)
[2021-11-11] MEDS: MAGNESIUM OXIDE 400 MG TAB PO SCH (07:37)
[2021-11-11] MEDS: ATORVASTATIN 40 MG TAB PO SCH (07:37)
[2021-11-11] MEDS: INSULIN ASPART (NovoLOG) 100 UNIT/ML VIAL SQ SCH ×4 (07:39→22:31)
[2021-11-11] MEDS ORDERED: FENOFIBRATE 160 MG TAB PO SCH (09:00)
[2021-11-11] MEDS ORDERED: NON FORMULARY DRUG (Omeprazole [Omeprazole] 20 MG Tab.Rap.Dr) PO SCH (09:00)
[2021-11-11] MEDS ORDERED: METFORMIN HCL 1000 MG PO SCH (09:00)
[2021-11-11] MEDS ORDERED: NON FORMULARY DRUG (Liraglutide [Victoza 2-Pak] 0.6 MG/0.1 ML Ml) SQ SCH (09:00)
[2021-11-11] MEDS ORDERED: FUROSEMIDE 20 MG TAB PO SCH (10:00)
[2021-11-11 12:08] LABS: Glucose,Whole Blood 155 mg/dL (70-110)
--- NOTE | 2021-11-11 12:28 | P.PN ---
Subjective Progress Note Date: 11/11/21 Feels better , post op . abd pain improved , no n/v remains afebrile Objective - Vital Signs Vital signs: Vital Signs Temp 98.3 F 11/11/21 07:20 Pulse 71 11/11/21 07:20 Resp 18 11/11/21 07:20 BP 115/66 11/11/21 07:20 Pulse Ox 99 11/11/21 07:48 FiO2 Intake & Output 11/10/21 11/11/21 11/11/21 18:59 06:59 18:59 Intake Total 1100 300 240 Output Total 10 Balance 1100 290 240 Weight 141.067 kg Intake: IV 1100 300 Oral 240 Output: Estimated Blood Loss 10 Other: Voiding Method Toilet Toilet # Voids 2 2 1 - Exam General: [non toxic], [no distress], [appears at stated age] Derm: [warm], [dry] Head: [atraumatic], [normocephalic], [symmetric] Eyes: [EOMI], [no lid lag], [anicteric sclera] Mouth: [no lip lesion], [mucus membranes moist] Cardiovascular: [S1S2 reg], [no murmur] Lungs: [CTA bilateral], [no rhonchi, no rales] Abdominal: [soft], slight abd tenderness Ext: [no gross muscle atrophy], [no edema], [no contractures] Neuro: [no focal neuro deficits] Psych: [Alert], [oriented], [appropriate affect] - Labs CBC & Chem 7: 11/09/21 09:45 11/09/21 09:45 Labs: Abnormal Lab Results - Last 24 Hours (Table) 11/10/21 11/10/21 11/10/21 Range/Units 12:24 17:19 21:34 POC Glucose (mg/dL) 125 H 132 H 193 H (70-110) mg/dL 11/10/21 11/11/21 11/11/21 Range/Units 23:16 07:19 12:07 POC Glucose (mg/dL) 185 H 116 H 155 H (70-110) mg/dL Assessment and Plan Plan: Abdominal pain due to Incarcerated ventral hernia Hyponatremia Morbid obesity with BMI 48.7 Chronic conditions: Dyslipidemia, hypertension, type 2 diabetes mellitus, hyp othyroidism, COPD Resolved: Nausea and vomiting, hyperkalemia, elevated BUN sp surgery 11/10/2021 1. Severe intra-abdominal adhesions lower midline 2. Epigastric hernia defect with incarcerated fat, 6 x 4 cm reduced and closed 3. Incarcerated small bowel with bowel obstruction reduced without infarction, defect 9 x 5 cm combined 4. Reduction and piecemeal resection of 3 pounds incarcerated omentum lower midline incisional hernia 5. Large subcutaneous space 20 x 15 cm aspirated of air using an 18-gauge spinal needle 6. Trendelenburg at 7 to allow for reduction of incarcerated hernia 7. Accessary trocar at the left upper quadrant use for placement of mesh and suture. 8. Use of a 15 mm Endo Catch bag for removal of contents Continue aspirin and Lipitor. Continue Coreg, Imdur. Monitor vitals, adjust medications if necessary. Continue insulin sliding scale along with Accu-Cheks 4 times a day and hypoglycemic precautions. Continue Synthroid. Continue Symbicort, DuoNeb as needed for shortness of breath and wheezing. Heparin for DVT prophylaxis.
--- NOTE | 2021-11-11 13:57 | P.PN ---
Subjective Progress Note Date: 11/11/21 CHIEF COMPLAINT: Incarcerated incisional hernia HISTORY OF PRESENT ILLNESS: Patient is postop day #1 status post robotic- assisted lysis of adhesions, repair of incarcerated incisional hernia with small bowel obstruction with mesh placement and repair of incarcerated incisional hernia of the epigastrium. Patient sitting up at bedside chair. Her pain is controlled. She is tolerating diet. She denies any nausea or vomiting. Afebrile. PHYSICAL EXAM: VITAL SIGNS: Reviewed GENERAL: Well-developed in no acute distress. HEENT: No sclera icterus. Extraocular movements grossly intact. Moist buccal mucosa. Head is atraumatic, normocephalic. Hears conversational speech. No nasal drainage. NECK: Supple without lymphadenopathy. CHEST: Non-labored respirations and equal bilateral excursions. CARDIOVASCULAR: Palpable 2+ radial pulses. ABDOMEN: Soft. Nondistended. Abdominal binder in place MUSCULOSKELETAL: No clubbing or cyanosis. NEUROLOGIC: No focal or lateralizing signs. Cranial nerves II through XII grossly intact. PSYCH: Appropriate affect. Alert and oriented to person, place and time. SKIN: Well perfused. Good skin turgor. ASSESSMENT: 1. Incarcerated incisional hernia, initial 9 x 5 cm lower abdomen with small bowel obstruction 2. Chronic obstructive pulmonary disease 3. Fibromyalgia 4. Gastroesophageal reflux disease 5. Hypothyroidism 6. Incarcerated incisional hernia epigastrium, 6 x 4 cm 7. Severe intra-abdominal adhesions lower abdomen PLAN: -Diet advanced to carb consistent for lunch -Continue abdominal binders. Patient will require to abdominal binders -Educated on smoking cessation -Consult placed for bariatric nurse to evaluate patient regarding eventually weight loss surgical intervention -Encourage patient to ambulate -Continue pain management -DVT prophylaxis subcu heparin Physician Table Top Tile Setter note has been reviewed by physician. Signing provider agrees with the documented findings, assessment, and plan of care. Objective - Vital Signs Vital signs: Vital Signs Temp 98.3 F 11/11/21 07:20 Pulse 71 11/11/21 07:20 Resp 18 11/11/21 07:20 BP 115/66 11/11/21 07:20 Pulse Ox 99 11/11/21 07:48 FiO2 Intake & Output 11/10/21 11/11/21 11/11/21 18:59 06:59 18:59 Intake Total 1100 300 240 Output Total 10 Balance 1100 290 240 Weight 141.067 kg Intake: IV 1100 300 Oral 240 Output: Estimated Blood Loss 10 Other: Voiding Method Toilet Toilet # Voids 2 2 1 - Labs CBC & Chem 7: 11/09/21 09:45 11/09/21 09:45 Labs: Abnormal Lab Results - Last 24 Hours (Table) 11/10/21 11/10/21 11/10/21 Range/Units 17:19 21:34 23:16 POC Glucose (mg/dL) 132 H 193 H 185 H (70-110) mg/dL 11/11/21 11/11/21 Range/Units 07:19 12:07 POC Glucose (mg/dL) 116 H 155 H (70-110) mg/dL
[2021-11-11 17:05] LABS: Glucose,Whole Blood 173 mg/dL (70-110)
[2021-11-11] MEDS: traZODone HCL 50 MG TAB PO SCH (19:58)
[2021-11-11] MEDS: SYMBICORT 80-4.5 MCG INHALER INHALATION SCH (20:54)
[2021-11-11 22:08] LABS: Glucose,Whole Blood 144 mg/dL (70-110)
[2021-11-12] MEDS: SODIUM CHLORIDE 0.9% 1,000 ML IV SCH ×3 (02:09→21:42)
[2021-11-12] MEDS: HYDROmorphone 1 MG/ML 1 ML SYRINGE IVP PRN ×6 (03:43→21:41)
[2021-11-12] MEDS: LEVOTHYROXINE 88 MCG TAB PO SCH (05:44)
[2021-11-12 07:20] LABS: Glucose,Whole Blood 117 mg/dL (70-110)
[2021-11-12] MEDS: carvediloL 12.5 MG TAB PO SCH ×2 (07:52→21:44)
[2021-11-12] MEDS: ASPIRIN 81 MG PO SCH (07:52)
[2021-11-12] MEDS: ATORVASTATIN 40 MG TAB PO SCH (07:53)
[2021-11-12] MEDS: HEPARIN SODIUM,PORCINE/PF 5,000 UNIT/0.5 ML SYRINGE SQ SCH ×3 (07:53→21:44)
[2021-11-12] MEDS: MAGNESIUM OXIDE 400 MG TAB PO SCH (07:53)
[2021-11-12] MEDS: ISOSORBIDE MONONITRATE ER 30 MG TAB.ER.24H PO SCH (07:53)
[2021-11-12] MEDS: INSULIN ASPART (NovoLOG) 100 UNIT/ML VIAL SQ SCH ×4 (07:54→21:44)
[2021-11-12] MEDS: GABAPENTIN 300 MG CAP PO SCH ×3 (07:56→21:44)
[2021-11-12 09:47] LABS: Basophils # (A) 0.02 X 10*3/uL (0.00-0.10); Basophils % (A) 0.3 %; Eosinophils # (A) 0.13 X 10*3/uL (0.04-0.35); Eosinophils % (A) 1.8 %; HCT 35.3 % (37.2-46.3); HGB 10.7 g/dL (12.0-15.0); Immature Grans, Automated 0.4 %; Lymphocytes # (A) 0.98 X 10*3/uL (0.90-5.00); Lymphocytes % (A) 13.2 %; MCH 28.1 pg (27.0-32.0); MCHC 30.3 g/dL (32.0-37.0); MCV 92.7 fL (80.0-97.0); Mean Platelet Volume 12.6 fL (9.5-12.2); Monocytes # (A) 1.27 X 10*3/uL (0.20-1.00); Monocytes % (A) 17.1 %; NRBC Per 100 WBC 0 /100 WBCS (0.0-0.0); Neutrophils # (A) 4.99 X 10*3/uL (1.80-7.70); Neutrophils % (A) 67.2 %; Platelet Count 242 X 10*3/uL (140-440); RBC 3.81 X 10*6/uL (4.10-5.20); RDW 14.7 % (11.5-14.5); WBC 7.42 X 10*3/uL (4.50-10.00)
[2021-11-12 09:55] LABS: African American GFR (CKD) 98.2 (60.0-200.0); Albumin 3.2 g/dL (3.8-4.9); Albumin/Globulin Ratio 1.14 (1.60-3.17); Anion Gap 10.8 mmol/L (10.00-18.00); BUN/Creat Ratio 12.88 Ratio (12.00-20.00); Blood Urea Nitrogen 10.3 mg/dL (9.0-27.0); Calcium 8.5 mg/dL (8.7-10.3); Carbon Dioxide 22.2 mmol/L (20.0-27.5); Globulin 2.8 g/dL (1.6-3.3); Non-African American GFR(CKD) 84.8 (60.0-200.0); Potassium 4.8 mmol/L (3.5-5.5); Total Bilirubin 0.5 mg/dL (0.30-1.20)
[2021-11-12 11:07] VITALS: BMI 48.6
--- NOTE | 2021-11-12 11:37 | P.PN ---
Subjective Progress Note Date: 11/12/21 Feels better , post op . abd pain improved , no n/v remains afebrile Still has not had a bowel movement, not passing flatus. Tolerating diet Objective - Vital Signs Vital signs: Vital Signs Temp 98.1 F 11/12/21 07:00 Pulse 72 11/12/21 08:00 Resp 16 11/12/21 08:00 BP 119/59 11/12/21 07:00 Pulse Ox 94 L 11/12/21 07:49 FiO2 Intake & Output 11/11/21 11/12/21 11/12/21 18:59 06:59 18:59 Intake Total 598 422 Balance 598 422 Weight 141.067 kg Intake: Oral 598 422 Other: Voiding Method Toilet Toilet # Voids 1 1 - Exam General: [non toxic], [no distress], [appears at stated age] Head: [atraumatic], [normocephalic], [symmetric] Eyes: [EOMI], [no lid lag], [anicteric sclera] Mouth: [no lip lesion], [mucus membranes moist] Cardiovascular: [S1S2 reg], [no murmur] Lungs: Decreased breath sounds, no wheezing Abdominal: [soft], slight abd tenderness Ext: [no gross muscle atrophy], [no edema], [no contractures] Neuro: [no focal neuro deficits] Psych: [Alert], [oriented], [appropriate affect] - Labs CBC & Chem 7: 11/12/21 03:36 11/12/21 03:36 Labs: Abnormal Lab Results - Last 24 Hours (Table) 11/11/21 11/11/21 11/11/21 Range/Units 12:07 17:04 22:06 RBC (4.10-5.20) X 10*6/uL Hgb (12.0-15.0) g/dL Hct (37.2-46.3) % MCHC (32.0-37.0) g/dL RDW (11.5-14.5) % MPV (9.5-12.2) fL Monocytes # (0.20-1.00) X 10*3/uL Sodium (135-145) mmol/L Glucose (70-110) mg/dL POC Glucose (mg/dL) 155 H 173 H 144 H (70-110) mg/dL Calcium (8.7-10.3) mg/dL Total Protein (6.2-8.2) g/dL Albumin (3.8-4.9) g/dL Albumin/Globulin Ratio (1.60-3.17) g/dL 11/12/21 11/12/21 11/12/21 Range/Units 03:36 03:36 07:18 RBC 3.81 L (4.10-5.20) X 10*6/uL Hgb 10.7 L (12.0-15.0) g/dL Hct 35.3 L (37.2-46.3) % MCHC 30.3 L (32.0-37.0) g/dL RDW 14.7 H (11.5-14.5) % MPV 12.6 H (9.5-12.2) fL Monocytes # 1.27 H (0.20-1.00) X 10*3/uL Sodium 134 L (135-145) mmol/L Glucose 120 H (70-110) mg/dL POC Glucose (mg/dL) 117 H (70-110) mg/dL Calcium 8.5 L (8.7-10.3) mg/dL Total Protein 6.0 L (6.2-8.2) g/dL Albumin 3.2 L (3.8-4.9) g/dL Albumin/Globulin Ratio 1.14 L (1.60-3.17) g/dL Assessment and Plan Plan: Abdominal pain due to Incarcerated ventral hernia Hyponatremia Morbid obesity with BMI 48.7 Chronic conditions: Dyslipidemia, hypertension, type 2 diabetes mellitus, hypothyroidism, COPD Resolved: Nausea and vomiting, hyperkalemia, elevated BUN sp surgery 11/10/2021 1. Severe intra-abdominal adhesions lower midline 2. Epigastric hernia defect with incarcerated fat, 6 x 4 cm reduced and closed 3. Incarcerated small bowel with bowel obstruction reduced without infarction, defect 9 x 5 cm combined 4. Reduction and piecemeal resection of 3 pounds incarcerated omentum lower midline incisional hernia 5. Large subcutaneous space 20 x 15 cm aspirated of air using an 18-gauge spinal needle 6. Trendelenburg at 7 to allow for reduction of incarcerated hernia 7. Accessary trocar at the left upper quadrant use for placement of mesh and suture. 8. Use of a 15 mm Endo Catch bag for removal of contents Diet advanced, monitoring for return of bowel function. Surgery following. Continue aspirin and Lipitor. Continue Coreg, Imdur. Monitor vitals, adjust medications if necessary. Continue insulin sliding scale along with Accu-Cheks 4 times a day and hypoglycemic precautions. Continue Synthroid. Continue Symbicort, DuoNeb as needed for shortness of breath and wheezing. Heparin for DVT prophylaxis. Disposition: Pending clinical progression, appreciate surgery input
[2021-11-12 12:01] LABS: Glucose,Whole Blood 126 mg/dL (70-110)
--- NOTE | 2021-11-12 15:43 | P.DS ---
Providers Date of admission: 11/10/21 13:50 Expected date of discharge: 11/12/21 Attending physician: Libia Diaz MD Consults: 11/08/21 02:47 Consult Physician Urgent Consulting Provider: Georgia Santizo Consult Reason/Comments: Ventral hernia with pain Do you want consulting provider notified?: Yes 11/08/21 14:03 Consult Physician Urgent Consulting Provider: Aquilino Matthew Consult Reason/Comments: cardio clearance for herina surgery Do you want consulting provider notified?: Yes 11/09/21 13:47 Consult Physician Routine Consulting Provider: [facility] Consult Reason/Comments: Regional block Do you want consulting provider notified?: Yes Primary care physician: Physician Nonstaff Hospital Course: Discharge diagnosis 1. Incarcerated incisional hernia, initial 9 x 5 cm lower abdomen with small bowel obstruction 2. Chronic obstructive pulmonary disease 3. Fibromyalgia 4. Gastroesophageal reflux disease 5. Hypothyroidism 6. Incarcerated incisional hernia epigastrium, 6 x 4 cm 7. Severe intra-abdominal adhesions lower abdomen Hospital course The patient is a 51-year-old female who presents with acute small bowel obstruction due to an incarcerated incisional hernia of the lower abdomen. Patient is status post robotic-assisted lysis of adhesions, reduction and repair of incarcerated initial incisional hernia with small bowel obstruction 9 x 5 cm with mesh, and reduction and repair of incarcerated incisional hernia epigastrium. Patient tolerated surgery well. Her pain is controlled. She has been up and ambulating. She is having flatus. Afebrile. She is tolerating diet. She is stable for discharge. Physician Informatics Nurse Specialist note has been reviewed by physician. Signing provider agrees with the documented findings, assessment, and plan of care. Patient Condition at Discharge: Stable Plan - Discharge Summary New Discharge Prescriptions: New Acetaminophen Tab [Tylenol] 1,000 mg PO Q6HR PRN #30 tablet PRN Reason: Pain No Action traZODone HCL [Desyrel] 50 mg PO HS@2100 Albuterol Sulfate [Ventolin HFA] 2 puff INHALATION RT-Q6H PRN PRN Reason: Shortness Of Breath Omeprazole 20 mg PO DAILY@0900 metFORMIN HCL [metFORMIN HCL ER Gastric] 1,000 mg PO BID@0900,1700 Levothyroxine Sodium [Synthroid] 88 mcg PO DAILY@0700 Isosorbide Mononitrate ER [Imdur] 30 mg PO DAILY@0900 Gabapentin 300 mg PO TID@0900,1300,2200 Furosemide [Lasix] 20 mg PO HS@2200 Furosemide [Lasix] 40 mg PO DAILY@1000 carvediloL [Coreg] 25 mg PO BID@0900,1700 Cetirizine HCl 10 mg PO DAILY PRN PRN Reason: Allergy Symptoms Atorvastatin Calcium [Lipitor] 40 mg PO DAILY@0900 Liraglutide [Victoza 2-Alberto] 0.6 mg SQ DAILY@0900 rOPINIRole HCL [Requip] 0.25 mg PO HS@2100 Potassium Chloride ER [K-Dur 10] 10 meq PO DAILY@0900 lisinopriL [Zestril] 5 mg PO DAILY@0900 Magnesium Oxide [Magox 400] 400 mg PO DAILY@0900 Fenofibrate [Lofibra] 160 mg PO DAILY@0900 Aspirin EC [Ecotrin Low Dose] 81 mg PO DAILY@09 Fluticasone Propion/Salmeterol [Advair Hfa 45-21 Mcg Inhaler] 2 puff INHALA TION RT-HS Albuterol Nebulized [Ventolin Nebulized] 2.5 mg INHALATION RT-TID PRN PRN Reason: Shortness Of Breath Discharge Medication List Albuterol Nebulized [Ventolin Nebulized] 2.5 mg INHALATION RT-TID PRN 11/07/21 [History] Albuterol Sulfate [Ventolin HFA] 2 puff INHALATION RT-Q6H PRN 11/07/21 [History] Aspirin EC [Ecotrin Low Dose] 81 mg PO DAILY@0911/07/21 [History] Atorvastatin Calcium [Lipitor] 40 mg PO DAILY@0911/07/21 [History] Cetirizine HCl 10 mg PO DAILY PRN 11/07/21 [History] Fenofibrate [Lofibra] 160 mg PO DAILY@89911/07/21 [History] Fluticasone Propion/Salmeterol [Advair Hfa 45-21 Mcg Inhaler] 2 puff INHALATION RT-HS 11/07/21 [History] Furosemide [Lasix] 20 mg PO HS@2200 11/07/21 [History] Furosemide [Lasix] 40 mg PO DAILY@1000 11/07/21 [History] Gabapentin 300 mg PO TID@0900,1300,2200 11/07/21 [History] Isosorbide Mononitrate ER [Imdur] 30 mg PO DAILY@89911/07/21 [History] Levothyroxine Sodium [Synthroid] 88 mcg PO DAILY@69911/07/21 [History] Liraglutide [Victoza 2-Alberto] 0.6 mg SQ DAILY@89911/07/21 [History] Magnesium Oxide [Magox 400] 400 mg PO DAILY@89911/07/21 [History] Omeprazole 20 mg PO DAILY@89911/07/21 [History] Potassium Chloride ER [K-Dur 10] 10 meq PO DAILY@89911/07/21 [History] carvediloL [Coreg] 25 mg PO BID@0900,17011/07/21 [History] lisinopriL [Zestril] 5 mg PO DAILY@89911/07/21 [History] metFORMIN HCL [metFORMIN HCL ER Gastric] 1,000 mg PO BID@0900,169911/07/21 [History] rOPINIRole HCL [Requip] 0.25 mg PO HS@209911/07/21 [History] traZODone HCL [Desyrel] 50 mg PO HS@209911/07/21 [History] Acetaminophen Tab [Tylenol] 1,000 mg PO Q6HR PRN #30 tablet 11/12/21 [Rx] Follow up Appointment(s)/Referral(s): Georgia Santizo MD [STAFF PHYSICIAN] - 11/25/21 Nonstaff,Physician [Primary Care Provider] - 1-2 days Activity/Diet/Wound Care/Special Instructions: Wear abdominal binder at all times for comfort No lifting over 4 pounds in 4 weeks You May shower. No bath tub soaks for two weeks Avoid steak, tough meats and seeds such as raspberry seeds. Use ice along incisions for the today to prevent swelling Continue Consistent carbohydrate diet Patient counseled on No smoking Discharge Disposition: HOME SELF-CARE
[2021-11-12 17:22] LABS: Glucose,Whole Blood 127 mg/dL (70-110)
[2021-11-12] MEDS: SYMBICORT 80-4.5 MCG INHALER INHALATION SCH (19:51)
[2021-11-12 20:39] LABS: Glucose,Whole Blood 134 mg/dL (70-110)
[2021-11-12] MEDS: traZODone HCL 50 MG TAB PO SCH (21:44)
[2021-11-13] MEDS: HYDROmorphone 1 MG/ML 1 ML SYRINGE IVP PRN ×3 (04:09→11:56)
[2021-11-13] MEDS: SODIUM CHLORIDE 0.9% 1,000 ML IV SCH ×2 (05:21→11:36)
[2021-11-13] MEDS: LEVOTHYROXINE 88 MCG TAB PO SCH (05:47)
[2021-11-13 07:25] LABS: Glucose,Whole Blood 113 mg/dL (70-110)
[2021-11-13] MEDS: GABAPENTIN 300 MG CAP PO SCH (07:38)
[2021-11-13] MEDS: HEPARIN SODIUM,PORCINE/PF 5,000 UNIT/0.5 ML SYRINGE SQ SCH (07:38)
[2021-11-13] MEDS: ASPIRIN 81 MG PO SCH (07:38)
[2021-11-13] MEDS: MAGNESIUM OXIDE 400 MG TAB PO SCH (07:39)
[2021-11-13] MEDS: ATORVASTATIN 40 MG TAB PO SCH (07:39)
[2021-11-13] MEDS: carvediloL 12.5 MG TAB PO SCH (07:39)
[2021-11-13] MEDS: ISOSORBIDE MONONITRATE ER 30 MG TAB.ER.24H PO SCH (07:39)
[2021-11-13 08:20] VITALS: BP 122/53; RESP 17; TEMP 98.7
[2021-11-13 08:26] VITALS: PULSE 77
[2021-11-13] MEDS: INSULIN ASPART (NovoLOG) 100 UNIT/ML VIAL SQ SCH ×2 (08:37→11:37)
[2021-11-13 08:51] LABS: HCT 34.1 % (37.2-46.3); HGB 10.6 g/dL (12.0-15.0); MCH 28.5 pg (27.0-32.0); MCHC 31.1 g/dL (32.0-37.0); MCV 91.7 fL (80.0-97.0); Mean Platelet Volume 11.8 fL (9.5-12.2); NRBC Per 100 WBC 0 /100 WBCS (0.0-0.0); Platelet Count 293 X 10*3/uL (140-440); RBC 3.72 X 10*6/uL (4.10-5.20); RDW 14.7 % (11.5-14.5); WBC 6.01 X 10*3/uL (4.50-10.00)
[2021-11-13 09:14] LABS: African American GFR (CKD) 115.5 (60.0-200.0); Albumin/Globulin Ratio 1.15 (1.60-3.17); Anion Gap 11.5 mmol/L (10.00-18.00); BUN/Creat Ratio 9.86 Ratio (12.00-20.00); Blood Urea Nitrogen 6.9 mg/dL (9.0-27.0); Calcium 8.3 mg/dL (8.7-10.3); Carbon Dioxide 23.5 mmol/L (20.0-27.5); Globulin 2.6 g/dL (1.6-3.3); Non-African American GFR(CKD) 99.6 (60.0-200.0); Potassium 4.2 mmol/L (3.5-5.5); Total Bilirubin 0.6 mg/dL (0.30-1.20); Total Protein 5.6 g/dL (6.2-8.2)
[2021-11-13 09:27] LABS: Basophils # (A) 0.03 X 10*3/uL (0.00-0.10); Basophils % (A) 0.5 %; Eosinophils # (A) 0.14 X 10*3/uL (0.04-0.35); Eosinophils % (A) 2.3 %; Immature Grans, Automated 0.5 %; Lymphocytes % (A) 18.3 %; Monocytes # (A) 1.25 X 10*3/uL (0.20-1.00); Monocytes % (A) 20.8 %; Neutrophils # (A) 3.46 X 10*3/uL (1.80-7.70); Neutrophils % (A) 57.6 %
[2021-11-13 11:28] LABS: Glucose,Whole Blood 115 mg/dL (70-110)
--- NOTE | 2021-11-13 13:29 | P.PN ---
Subjective Progress Note Date: 11/13/21 CHIEF COMPLAINT: Incarcerated incisional hernia HISTORY OF PRESENT ILLNESS: Patient is postop day #3 status post robotic- assisted lysis of adhesions, repair of incarcerated incisional hernia with small bowel obstruction with mesh placement and repair of incarcerated incisional hernia of the epigastrium. Patient's pain is controlled. She sitting up at bedside chair. She reports serosanguineous drainage from the incision site. No pain at the incision site. She is having flatus. Denies any nausea or vomiting. Afebrile. PHYSICAL EXAM: VITAL SIGNS: Reviewed GENERAL: Well-developed in no acute distress. HEENT: No sclera icterus. Extraocular movements grossly intact. Moist buccal mucosa. Head is atraumatic, normocephalic. Hears conversational speech. No nasal drainage. NECK: Supple without lymphadenopathy. CHEST: Non-labored respirations and equal bilateral excursions. CARDIOVASCULAR: Palpable 2+ radial pulses. ABDOMEN: Soft. Nondistended. Left lower quadrant incision site with serosanguineous drainage. No pain with palpation. No erythema. MUSCULOSKELETAL: No clubbing or cyanosis. NEUROLOGIC: No focal or lateralizing signs. Cranial nerves II through XII grossly intact. PSYCH: Appropriate affect. Alert and oriented to person, place and time. SKIN: Well perfused. Good skin turgor. ASSESSMENT: 1. Incarcerated incisional hernia, initial 9 x 5 cm lower abdomen with small bowel obstruction 2. Chronic obstructive pulmonary disease 3. Fibromyalgia 4. Gastroesophageal reflux disease 5. Hypothyroidism 6. Incarcerated incisional hernia epigastrium, 6 x 4 cm 7. Severe intra-abdominal adhesions lower abdomen PLAN: -Patient can be discharged from surgical standpoint -Optifoam dressing applied to the left lower quadrant incision. Dressing consisting in place for 1 week. Okay to shower with dressing -Continue carb consistent diet -Educated on smoking cessation -Encourage patient to ambulate -Continue pain management -DVT prophylaxis subcu heparin Physician Border Measurer And Cutter note has been reviewed by physician. Signing provider agrees with the documented findings, assessment, and plan of care. Objective - Vital Signs Vital signs: Vital Signs Temp 98.7 F 11/13/21 08:19 Pulse 77 11/13/21 08:25 Resp 17 11/13/21 08:19 BP 122/53 11/13/21 08:19 Pulse Ox 91 L 11/13/21 08:25 FiO2 Intake & Output 11/12/21 11/13/21 11/13/21 18:59 06:59 18:59 Intake Total 422 Balance 422 Weight 141.067 kg Intake: Oral 422 Other: Voiding Method Toilet Toilet # Voids 2 1 - Labs CBC & Chem 7: 11/13/21 05:08 11/13/21 05:08 Labs: Abnormal Lab Results - Last 24 Hours (Table) 11/12/21 11/12/21 11/13/21 Range/Units 17:21 20:38 05:08 RBC 3.72 L (4.10-5.20) X 10*6/uL Hgb 10.6 L (12.0-15.0) g/dL Hct 34.1 L (37.2-46.3) % MCHC 31.1 L (32.0-37.0) g/dL RDW 14.7 H (11.5-14.5) % Monocytes # 1.25 H (0.20-1.00) X 10*3/uL BUN (9.0-27.0) mg/dL BUN/Creatinine Ratio (12.00-20.00) Ratio Glucose (70-110) mg/dL POC Glucose (mg/dL) 127 H 134 H (70-110) mg/dL Calcium (8.7-10.3) mg/dL Total Protein (6.2-8.2) g/dL Albumin (3.8-4.9) g/dL Albumin/Globulin Ratio (1.60-3.17) g/dL 11/13/21 11/13/21 11/13/21 Range/Units 05:08 07:24 11:26 RBC (4.10-5.20) X 10*6/uL Hgb (12.0-15.0) g/dL Hct (37.2-46.3) % MCHC (32.0-37.0) g/dL RDW (11.5-14.5) % Monocytes # (0.20-1.00) X 10*3/uL BUN 6.9 L (9.0-27.0) mg/dL BUN/Creatinine Ratio 9.86 L (12.00-20.00) Ratio Glucose 112 H (70-110) mg/dL POC Glucose (mg/dL) 113 H 115 H (70-110) mg/dL Calcium 8.3 L (8.7-10.3) mg/dL Total Protein 5.6 L (6.2-8.2) g/dL Albumin 3.0 L (3.8-4.9) g/dL Albumin/Globulin Ratio 1.15 L (1.60-3.17) g/dL
--- NOTE | 2021-11-13 13:36 | P.DS ---
Providers Date of admission: 11/10/21 13:50 Expected date of discharge: 11/13/21 Attending physician: Libia Diaz MD Consults: 11/08/21 02:47 Consult Physician Urgent Consulting Provider: Georgia Santizo Consult Reason/Comments: Ventral hernia with pain Do you want consulting provider notified?: Yes 11/08/21 14:03 Consult Physician Urgent Consulting Provider: Aquilino Matthew Consult Reason/Comments: cardio clearance for herina surgery Do you want consulting provider notified?: Yes 11/09/21 13:47 Consult Physician Routine Consulting Provider: [facility] Consult Reason/Comments: Regional block Do you want consulting provider notified?: Yes Primary care physician: Physician Nonstaff Hospital Course: The patient is a 51-year-old female who presents with acute small bowel obstruction due to an incarcerated incisional hernia of the lower abdomen. Patient is status post robotic-assisted lysis of adhesions, reduction and repair of incarcerated initial incisional hernia with small bowel obstruction 9 x 5 cm with mesh, and reduction and repair of incarcerated incisional hernia epigastrium. Patient tolerated surgery well. Patient was seen and examined. No acute events overnight. Patient tolerating diet well. No nausea or vomiting. Had a bowel movement. Pain under control. General: [non toxic], [no distress], [appears at stated age] Derm: [warm], [dry] Head: [atraumatic], [normocephalic], [symmetric] Eyes: [EOMI], [no lid lag], [anicteric sclera] Mouth: [no lip lesion], [mucus membranes moist] Cardiovascular: [S1S2 reg], [no murmur] Lungs: [CTA bilateral], [no rhonchi, no rales] , [no accessory muscle use] Abdominal: [soft], [ nontender to palpation], [laparoscopic scars intact, L scar with serosanguineous discharge], [no appreciable organomegaly] Ext: [no gross muscle atrophy], [no edema], [no contractures] Neuro: [no focal neuro deficits] Psych: [Alert], [oriented], [appropriate affect] Discharge Diagnosis: Abdominal pain due to Incarcerated ventral hernia Hyponatremia Morbid obesity with BMI 48.7 Chronic conditions: Dyslipidemia, hypertension, type 2 diabetes mellitus, hypothyroidism, COPD Resolved: Nausea and vomiting, hyperkalemia, elevated BUN This complex discharge took about 45 minutes to complete. Pertinent Studies: CXR. Echocardiogram. CTAP Patient Condition at Discharge: Stable Plan - Discharge Summary New Discharge Prescriptions: New HYDROcodone/APAP 5-325MG [[place] 5-325] 1 tab PO Q6HR PRN 3 Days #12 tab PRN Reason: Pain Acetaminophen Tab [Tylenol] 1,000 mg PO Q6HR PRN #30 tablet PRN Reason: Pain Continue traZODone HCL [Desyrel] 50 mg PO HS@2100 Albuterol Sulfate [Ventolin HFA] 2 puff INHALATION RT-Q6H PRN PRN Reason: Shortness Of Breath Omeprazole 20 mg PO DAILY@0900 metFORMIN HCL [metFORMIN HCL ER Gastric] 1,000 mg PO BID@0900,1700 Levothyroxine Sodium [Synthroid] 88 mcg PO DAILY@0700 Isosorbide Mononitrate ER [Imdur] 30 mg PO DAILY@0900 Gabapentin 300 mg PO TID@0900,1300,2200 Furosemide [Lasix] 20 mg PO HS@2200 Furosemide [Lasix] 40 mg PO DAILY@1000 carvediloL [Coreg] 25 mg PO BID@0900,1700 Cetirizine HCl 10 mg PO DAILY PRN PRN Reason: Allergy Symptoms Atorvastatin Calcium [Lipitor] 40 mg PO DAILY@0900 Liraglutide [Victoza 2-Alberto] 0.6 mg SQ DAILY@0900 rOPINIRole HCL [Requip] 0.25 mg PO HS@2100 Potassium Chloride ER [K-Dur 10] 10 meq PO DAILY@0900 lisinopriL [Zestril] 5 mg PO DAILY@0900 Magnesium Oxide [Magox 400] 400 mg PO DAILY@0900 Fenofibrate [Lofibra] 160 mg PO DAILY@0900 Aspirin EC [Ecotrin Low Dose] 81 mg PO DAILY@0900 Fluticasone Propion/Salmeterol [Advair Hfa 45-21 Mcg Inhaler] 2 puff INHALATION RT-HS Albuterol Nebulized [Ventolin Nebulized] 2.5 mg INHALATION RT-TID PRN PRN Reason: Shortness Of Breath Discharge Medication List Albuterol Nebulized [Ventolin Nebulized] 2.5 mg INHALATION RT-TID PRN 11/07/21 [History] Albuterol Sulfate [Ventolin HFA] 2 puff INHALATION RT-Q6H PRN 11/07/21 [History] Aspirin EC [Ecotrin Low Dose] 81 mg PO DAILY@89911/07/21 [History] Atorvastatin Calcium [Lipitor] 40 mg PO DAILY@89911/07/21 [History] Cetirizine HCl 10 mg PO DAILY PRN 11/07/21 [History] Fenofibrate [Lofibra] 160 mg PO DAILY@89911/07/21 [History] Fluticasone Propion/Salmeterol [Advair Hfa 45-21 Mcg Inhaler] 2 puff INHALATION RT-HS 11/07/21 [History] Furosemide [Lasix] 20 mg PO HS@219911/07/21 [History] Furosemide [Lasix] 40 mg PO DAILY@99911/07/21 [History] Gabapentin 300 mg PO TID@0900,1300,219911/07/21 [History] Isosorbide Mononitrate ER [Imdur] 30 mg PO DAILY@89911/07/21 [History] Levothyroxine Sodium [Synthroid] 88 mcg PO DAILY@69911/07/21 [History] Liraglutide [Victoza 2-Alberto] 0.6 mg SQ DAILY@89911/07/21 [History] Magnesium Oxide [Magox 400] 400 mg PO DAILY@89911/07/21 [History] Omeprazole 20 mg PO DAILY@89911/07/21 [History] Potassium Chloride ER [K-Dur 10] 10 meq PO DAILY@89911/07/21 [History] carvediloL [Coreg] 25 mg PO BID@0900,169911/07/21 [History] lisinopriL [Zestril] 5 mg PO DAILY@89911/07/21 [History] metFORMIN HCL [metFORMIN HCL ER Gastric] 1,000 mg PO BID@0900,169911/07/21 [History] rOPINIRole HCL [Requip] 0.25 mg PO HS@209911/07/21 [History] traZODone HCL [Desyrel] 50 mg PO HS@2100 11/07/21 [History] Acetaminophen Tab [Tylenol] 1,000 mg PO Q6HR PRN #30 tablet 11/12/21 [Rx] HYDROcodone/APAP 5-325MG [[place] 5-325] 1 tab PO Q6HR PRN 3 Days #12 tab 11/13/21 [Rx] Follow up Appointment(s)/Referral(s): Georgia Santizo MD [STAFF PHYSICIAN] - 11/25/21 Nonstaff,Physician [Primary Care Provider] - 1-2 days Activity/Diet/Wound Care/Special Instructions: Wear abdominal binder at all times for comfort No lifting over 4 pounds in 4 weeks You May shower. No bath tub soaks for two weeks Avoid steak, tough meats and seeds such as raspberry seeds. Use ice along incisions for the today to prevent swelling Continue Consistent carbohydrate diet Patient counseled on No smoking Discharge Disposition: HOME SELF-CARE
== END 2021-11-13 15:50 | disposition home or self-care (01) | DRG 336 ==
LOC: EC 17:15 → INTOOBSV 19:00 → 6NMEDSUR 19:00 → OBSVTOIN 11-10 13:50 → 4SSUR 11-13 08:10
PROVIDERS: ADMIT Internal Medicine; ATTEND Internal Medicine
PROC: 0DNW4ZZ Release Peritoneum, Percutaneous Endoscopic Approach (ICD-10-PCS; 2021-11-10)
PROC: 0DBU4ZZ Excision of Omentum, Percutaneous Endoscopic Approach (ICD-10-PCS; 2021-11-10)
PROC: 0DQV4ZZ Repair Mesentery, Percutaneous Endoscopic Approach (ICD-10-PCS; 2021-11-10)
PROC: 8E0W4CZ Robotic Assisted Procedure of Trunk Region, Percutaneous Endoscopic Approach (ICD-10-PCS; 2021-11-10)
PROC: 0WUF4JZ Supplement Abdominal Wall with Synthetic Substitute, Percutaneous Endoscopic Approach (ICD-10-PCS; principal; 2021-11-10 10:35)
DX: K43.0 Incisional hernia with obstruction, without gangrene (principal); E87.1 Hypo-osmolality and hyponatremia; Z68.42 Body mass index [BMI] 45.0-49.9, adult; J96.11 Chronic respiratory failure with hypoxia; E66.01 Morbid (severe) obesity due to excess calories; J44.9 Chronic obstructive pulmonary disease, unspecified; I11.0 Hypertensive heart disease with heart failure; I50.9 Heart failure, unspecified; Z71.6 Tobacco abuse counseling; E86.0 Dehydration; I44.0 Atrioventricular block, first degree; E11.9 Type 2 diabetes mellitus without complications; E03.9 Hypothyroidism, unspecified; M79.7 Fibromyalgia; K21.9 Gastro-esophageal reflux disease without esophagitis; K66.0 Peritoneal adhesions (postprocedural) (postinfection); E78.5 Hyperlipidemia, unspecified; E87.5 Hyperkalemia; R94.4 Abnormal results of kidney function studies; Z99.81 Dependence on supplemental oxygen; Z79.4 Long term (current) use of insulin; Z79.82 Long term (current) use of aspirin; Z79.890 Hormone replacement therapy; Z79.899 Other long term (current) drug therapy
CPT/HCPCS: 71046; 74176; 80048; 80053; 81001; 81025; 82150; 83036; 83605; 83690; 85025; 85027; 85610; 86850; 86900; 86901; 88305; 93005; 93306; 94760; 96361; 96374; 96376; 99285